=== PATIENT | female | born 1960 | race Caucasian/White ===

== ENCOUNTER → 2017-01-08 | Outpatient (CLI) | payer OTHER ==
[~2017-01-08] MED LIST: ACCUNEB 0.1.25 MG/1 INH; ALBUTEROL0.09 MG/A2 IH; AMBIEN10 M1 PO; AMBIEN10 MG PO; AMITRIPTYLINE10 MG PO; AMOXIL500 M1 PO; ANEXSIA PO; ASPIRIN EC81 MG PO; ASPIRIN325 M2 PO; ATARAX25 MG PO; ATIVAN0.5 MG PO; ATIVAN1 MG PO; AUGMENTIN 875875 MG PO; BACTRIM DS 8001 TA1 PO; BROMOPHED DX 4480 ML PO; Bactroban Oint22 GM T; CALCIUM 500 + D1 TA1 PO; CALCIUM 500 +1 EAC1 PO; CARVEDILOL3.125 MG PO; CARVEDILOL6.25 MG PO; CEFTIN500 MG PO; CIPRO250 MG PO; CIPRO500 MG PO; COREG6.25 MG PO; COZAAR100 MG PO; DELTASONE10 MG PO; DIOCTO LIQ50 MG/5 ML PO; DITROPAN5 MG PO; DUONEB 3 MG/3 ML3 M1 INH; Ecotrin325 MG PO; FLEXERIL10 MG PO; FLOVENT 110 M110 MCG INH; FLOVENT HFA12 GM INH; FLOVENT0.11 MG/AC IH; FLUCONAZOLE100 MG PO; GABAPENTIN100 M1 PO; GABAPENTIN100 M2 PO; GLYCOLAX17 GM/DOSE PO; HUMULIN 70100 UNIT/1 SQ; HUMULIN N100 U/ML SC; HUMULIN N100 UNIT/1 SQ; HYDROCODONE BIT1 T11 PO; IBUPROFEN800 MG PO; KEFLEX500 MG PO; KROGER NIC21 MG/24 H T; LANTUS100 U/ML SC; LASIX40 MG PO; LATU20TA PO; LEVAQUIN750 M1 PO; LEVAQUIN750 MG PO; LIDODERM5% TP; LIPITOR40 MG PO; LISINOPRIL20 MG PO; LORAZEPAM0.5 MG PO; LOSARTAN POTAS100 M1 PO; MIRALAX POWDER17 G1 PO; MIRALAX17 GM PO; MOTRIN800 MG PO; Motrin,Rufen800 MG PO; NEURONTIN100 MG PO; NEURONTIN300 MG PO; NICODERM C21 MG/24 H T; NICODERM C21 MG/24 H TD; NIFEDIAC CC90 MG PO; NIFEDICAL XL60 MG PO; NIFEDIPINE ER90 M1 PO; NITRO TRANS0.4 MG/HR TD; NITROGLYCERIN0.4 MG SL; NITROQUICK0.4 MG PO; NORCO 325 MG-51 TAB PO; NORCO 325 MG-7.1 TAB PO; NORCO 5-325 TA1 EACH PO; OMEPRAZOLE40 MG PO; OSCAL/D,OYSTER250 MG PO; OXYBUTYNIN CHLOR5 M1 PO; OXYBUTYNIN5 MG PO; OXYGEN NAS; OYSTER CAL 500500 MG PO; Oscal,Oyster S500 MG PO; PERCOCET 325 MG1 TA2 PO; PERCOCET 325 MG1 TA5 PO; PRAVASTATIN SOD40 MG PO; PREDNICOT20 MG PO; PREDNISONE10 MG; PREDNISONE10 MG PO; PREDNISONE50 MG PO; PREMARIN V0.625 MG/G VG; PREMARIN0.625 M1 PO; PREMARIN0.625 MG PO; PREVACID30 M1 PO; PRILOSEC20 MG PO; PRILOSEC40 MG PO; PROAIR HFA0.09 MG/AC IH; PROAIR HFA8.5 GM INH; PROCARDIA XL90 MG PO; PROCARDIA10 MG PO; RA HI-CAL PLUS1 EACH PO; ROBAXIN750 MG PO; ROBITUSSIN AC 110 ML PO; SPIRIVA18 MCG PO; TIZANIDINE HCL4 MG PO; TRAMADOL HCL50 MG PO; TRAMADOL50 MG PO; TUDORZA PRESS400 MCG INH; TYLENOL WITH CO1 TAB; ULTRAM50 MG PO; VALIUM10 MG PO; VALIUM5 MG PO; VENTOLIN 02.5 MG/3 M NEB; VENTOLIN H0.09 MG/AC INH; VICO75300 PO; VICODIN 5/500 505 MG PO; VICODIN ES 7501 TA1 PO; VITAMIN D5000 UNIT PO; VITAMIN D50000 I2 PO; VITAMIN D50000 I3 PO; VITAMIN D50000 UNIT PO; ZANAFLEX4 M1 PO; ZANAFLEX4 MG PO; ZANTAC 150150 MG PO; ZANTAC 300300 MG PO; ZESTRIL40 MG PO; ZETIA10 MG PO; ZITHROMAX Z PA250 MG PO; ZITHROMAX250 MG PO; ZOFRAN ODT4 MG PO; ZOFRAN4 MG PO; Zofran4 MG PO; [UNRECOGNIZED DRUG - OTHER]
[2017-01-08 09:07] LABS: HEMATOCRIT 44.7 % (37.0-47.0); HEMOGLOBIN 15.2 g/dl (12.0-16.0); MEAN CELL VOLUME 92.4 fl (81.0-99.0); MEAN CORPUSCULAR HGB 31.4 pg (27.0-31.0); MEAN PLATELET VOLUME 10.6 fl (9.6-12.3); PLATELET COUNT AUTOMATED 243 10*3/uL (130-400); RED BLOOD COUNT 4.84 10*6/uL (4.10-5.10); RED CELL DISTRI WIDTH 12.3 % (0-14.5); WHITE BLOOD COUNT 17.9 10*3/uL (4.8-10.8)
[2017-01-08 09:39] LABS: ALBUMIN 3.2 gm/dl (3.1-4.5); ALKALINE PHOSPHATASE 68 U/L (45-117); BILIRUBIN, TOTAL 0.3 mg/dl (0.2-1.0); BUN 22 mg/dl (7-24); CARBON DIOXIDE 26 mmol/L (21-32); CHLORIDE 104 mmol/L (98-107); CHOLESTEROL 255 mg/dL (<200); EST GLOM FILT AFRICAN AMERICAN > 60 ml/min; GLUCOSE 204 mg/dL (65-99); HDL CHOLESTEROL 47 mg/dl (40-60); SGOT/AST 18 IU/L (3-35); SGPT/ALT 61 U/L (12-78); SODIUM 141 mmol/L (136-145); TOTAL PROTEIN 6.6 gm/dL (6.4-8.2); TRIGLYCERIDES 469 mg/dl (<150)
[2017-01-08 09:43] LABS: ATYPICAL LYMPHS 5 % (0-0); EOSINOPHIL # 0.4 10*3/uL (0-0.4); EOSINOPHILS 2 % (1-4); LYMPHOCYTE # 5.5 10*3/uL (1.3-4.4); MONOCYTE # 1.8 10*3/uL (0.1-1.0); NEUTROPHIL # 10.2 10*3/uL (2.3-7.9); NEUTROPHILS 57 % (47-73); PLATELET SUFFICIENCY NORMAL (NORMAL); TOTAL CELLS COUNTED 100 #CELLS
[2017-01-08 11:39] LABS: VITAMIN D, 25-HYDROXY 27.9 ng/mL (30-100)
== END | disposition home or self-care (01) ==
LOC: LAB 08:46
PROVIDERS: Internal Medicine
DX: E11.42 Type 2 diabetes mellitus with diabetic polyneuropathy (principal); E78.2 Mixed hyperlipidemia; E55.9 Vitamin D deficiency, unspecified; R53.83 Other fatigue

== ENCOUNTER → 2017-01-13 | Outpatient (CLI) | payer OTHER ==
[~2017-01-13] MED LIST changes: +COREG3.125 MG PO; +HUMALOG100 U/ML SC; +LEVOTHYROXIN0.025 MG PO; +NIFEDIPINE ER60 M1 PO
--- NOTE | ~2017-01-13 | ST ---
[place], [place] EXERCISE STRESS TEST REPORT NAME: TY SEXTON [facility] #: [id number] UNIT #: [id number] ROOM: DOCTOR: JACKLYN MAYEN MD BIRTHDATE: [birth year] DOS: 01/13/2017 RESULTS: Lexiscan portion of the Lexiscan Cardiolite. Baseline cardiogram, sinus rhythm with nonspecific ST-T changes. 0.4 mg of Lexiscan, duration of 10 seconds. With Lexiscan, no new EKG changes. No chest pain. Blood pressure and heart rate response was normal. FINAL IMPRESSION: No EKG changes with Lexiscan. No chest pain with Lexiscan. No dysrhythmia with Lexiscan. Blood pressure and heart rate response was normal. Nuclear images will be reported separately. JACKLYN MAYEN MD CM:STRESS:EXERCISE STRESS TEST REPORT [id number] JACKLYN MAYEN MD
== END | disposition home or self-care (01) ==
LOC: CARD 02:38
DX: R07.2 Precordial pain (principal); R53.81 Other malaise

== ENCOUNTER → 2017-04-01 | Outpatient (CLI) | payer OTHER ==
[2017-04-01 09:33] LABS: URINE AMPHETAMINES < 1000 (1000ng/ml); URINE BARBITURATES < 200 (200ng/ml); URINE COCAINE < 300 (300ng/ml)
== END | disposition home or self-care (01) ==
LOC: LAB 08:09
PROVIDERS: Physician Assistant Medical
DX: B18.2 Chronic viral hepatitis C (principal)

== ENCOUNTER → 2017-08-05 | Outpatient (CLI) | payer OTHER ==
[2017-08-05 10:56] LABS: CREATININE 1.09 mg/dL (0.55-1.02)
[2017-08-05 11:07] LABS: URINE AMPHETAMINES < 1000 (1000ng/ml); URINE BARBITURATES < 200 (200ng/ml); URINE BENZODIAZEPINES < 200 (200ng/ml); URINE CANNABINOIDS (THC) < 50 (50ng/ml); URINE COCAINE < 300 (300ng/ml); URINE METHADONE < 300 (300ng/ml); URINE OPIATES > 300 (300ng/ml)
[2017-08-05 11:14] LABS: URINE PHENCYCLIDINE < 25 (25ng/ml)
== END | disposition home or self-care (01) ==
LOC: LAB 10:20 → CT 11:00
PROVIDERS: Internal Medicine; Internal Medicine Gastroenterology
DX: B18.2 Chronic viral hepatitis C (principal); I71.4 Abdominal aortic aneurysm, without rupture; E11.9 Type 2 diabetes mellitus without complications; R10.33 Periumbilical pain; I70.0 Atherosclerosis of aorta

== ENCOUNTER 2017-08-29 14:02 | Emergency (ER) | payer OTHER ==
[~2017-08-29] VITALS: Ht 162.5 cm; Wt 92.5 kg
[2017-08-29 15:03] LABS: BUN 22 mg/dl (7-24); CREATININE 1.21 mg/dL (0.55-1.02)
[2017-08-29 15:05] LABS: ETHYL ALCOHOL < 3.0 mg/dl (<3)
[2017-08-29 15:05] LABS: URINE AMPHETAMINES < 1000 (1000ng/ml); URINE BARBITURATES < 200 (200ng/ml); URINE BENZODIAZEPINES < 200 (200ng/ml); URINE CANNABINOIDS (THC) < 50 (50ng/ml); URINE COCAINE < 300 (300ng/ml); URINE METHADONE < 300 (300ng/ml); URINE OPIATES < 300 (300ng/ml); URINE PHENCYCLIDINE < 25 (25ng/ml)
[2017-08-29 15:07] LABS: BILIRUBIN NEGATIVE (NEGATIVE); BLOOD NEGATIVE (NEGATIVE); CLARITY CLEAR (CLEAR); COLOR YELLOW (YELLOW); GLUCOSE 3+ (NEGATIVE); KETONE TRACE (NEGATIVE); LEUKO ESTERASE NEGATIVE (NEGATIVE); NITRITE NEGATIVE (NEGATIVE); PH 5.5 (5.0-9.0); UROBILINOGEN 0.2 E.U./dl (0.2-1.0)
[2017-08-29 15:17] LABS: RBC 0-2 rbc/hpf (0-2)
[2017-08-29 15:18] LABS: BACTERIA 2+
[2017-08-29] MEDS ORDERED: TYLENOL W/CODEI1 TA4 PO (15:36)
== END 2017-08-29 15:39 | disposition home or self-care (01) ==
LOC: ED 14:02
PROVIDERS: Physician Assistant
DX: M54.5 Low back pain (principal); G89.29 Other chronic pain; F41.9 Anxiety disorder, unspecified; Z90.710 Acquired absence of both cervix and uterus; Z88.8 Allergy status to other drugs, medicaments and biological substances

== ENCOUNTER → 2017-11-03 | Outpatient (CLI) | payer OTHER ==
[~2017-11-03] MED LIST changes: +TYLENOL W/CODEI1 TA4 PO
== END | disposition home or self-care (01) ==
LOC: MAMMO 14:46
DX: Z12.31 Encounter for screening mammogram for malignant neoplasm of breast (principal)

== ENCOUNTER → 2017-11-11 | Outpatient (CLI) | payer OTHER ==
[2017-11-11 14:37] LABS: BASO % 0.3 % (0.0-1.0); EOS # 0.1 10*3/uL (0.0-0.4); EOS % 1.3 % (1.0-4.0); HEMATOCRIT 40.2 % (37.0-47.0); LYMPH # 3.1 10*3/uL (1.3-4.4); LYMPH % 27.3 % (27.0-41.0); MEAN CORPUSCULAR HGB 30.6 pg (27.0-31.0); MEAN CORPUSCULAR HGB CONC 34.8 g/dl (33.0-37.0); MEAN PLATELET VOLUME 11.2 fl (9.6-12.3); MONO # 0.8 10*3/uL (0.1-1.0); NEUT # 7.2 10*3/uL (2.3-7.9); NEUT % 63.8 % (47.0-73.0); PLATELET COUNT AUTOMATED 206 10*3/uL (130-400); RED BLOOD COUNT 4.57 10*6/uL (4.10-5.10); RED CELL DISTRI WIDTH 12.2 % (0-14.5); WHITE BLOOD COUNT 11.2 10*3/uL (4.8-10.8)
[2017-11-11 15:11] LABS: ALBUMIN 3.9 gm/dl (3.1-4.5); CREATININE 1.28 mg/dL (0.55-1.02); POTASSIUM 4.7 mmol/L (3.5-5.1); TOTAL PROTEIN 7.8 gm/dL (6.4-8.2)
== END | disposition home or self-care (01) ==
LOC: LAB 12:51 → MAMMO 13:00
PROVIDERS: Internal Medicine
DX: E11.42 Type 2 diabetes mellitus with diabetic polyneuropathy (principal); R92.8 Other abnormal and inconclusive findings on diagnostic imaging of breast; E78.2 Mixed hyperlipidemia; E03.9 Hypothyroidism, unspecified; E55.9 Vitamin D deficiency, unspecified

== ENCOUNTER → 2018-02-12 | Outpatient (CLI) | payer OTHER ==
[2018-02-12 07:58] LABS: BASO % 0.4 % (0.0-1.0); EOS # 0.3 10*3/uL (0.0-0.4); EOS % 2.8 % (1.0-4.0); HEMATOCRIT 42.6 % (37.0-47.0); HEMOGLOBIN 14.4 g/dl (12.0-16.0); LYMPH # 3.8 10*3/uL (1.3-4.4); LYMPH % 38.2 % (27.0-41.0); MEAN CORPUSCULAR HGB 30.8 pg (27.0-31.0); MEAN CORPUSCULAR HGB CONC 33.8 g/dl (33.0-37.0); MEAN PLATELET VOLUME 11.5 fl (9.6-12.3); MONO % 10.2 % (3.0-9.0); NEUT # 4.7 10*3/uL (2.3-7.9); NEUT % 48.1 % (47.0-73.0); PLATELET COUNT AUTOMATED 262 10*3/uL (130-400); RED BLOOD COUNT 4.68 10*6/uL (4.10-5.10); RED CELL DISTRI WIDTH 12.2 % (0-14.5); WHITE BLOOD COUNT 9.9 10*3/uL (4.8-10.8)
[2018-02-12 08:25] LABS: ALBUMIN 3.8 gm/dl (3.1-4.5); ALKALINE PHOSPHATASE 58 U/L (45-117); BUN 15 mg/dl (7-24); CHLORIDE 105 mmol/L (98-107); CHOLESTEROL 229 mg/dL (<200); CREATININE 0.85 mg/dL (0.55-1.02); HDL CHOLESTEROL 28 mg/dl (40-60); LDL CHOLESTEROL 140 mg/dL (9-159); POTASSIUM 3.9 mmol/L (3.5-5.1); SGOT/AST 15 IU/L (3-35); SGPT/ALT 24 U/L (12-78); SODIUM 140 mmol/L (136-145); TOTAL PROTEIN 7.6 gm/dL (6.4-8.2); TRIGLYCERIDES 307 mg/dl (<150); VLDL CHOLESTEROL 61 mg/dL (6-40)
== END | disposition home or self-care (01) ==
LOC: LAB 06:57
PROVIDERS: Internal Medicine
DX: E11.42 Type 2 diabetes mellitus with diabetic polyneuropathy (principal); E78.2 Mixed hyperlipidemia; E55.9 Vitamin D deficiency, unspecified

== ENCOUNTER 2018-03-01 08:09 | Inpatient (IN) | payer OTHER ==
[~2018-03-01] VITALS: Ht 162.5 cm; Wt 101.9 kg
--- NOTE | ~2018-03-01 | PR ---
[place], [place] PROGRESS NOTE NAME: TY SEXTON UNIT #: [id number] ROOM: 505 DOCTOR: YANN GIRARD MD BIRTHDATE: [birth year] DOS: 03/04/2018 SUBJECTIVE: She has bronchoscopy done yesterday reduction in symptoms of cough, resolution noted incomplete. There were no symptoms of chest pain or any hemoptysis. Denies symptoms of abdominal pain, nausea, vomiting, diarrhea or any abdominal pain. She denies symptoms of chest pain. Still complaining of nocturnal awakening, what appears like gasping and awakening at nighttime. OBJECTIVE: VITAL SIGNS: For the patient which has been recorded showed normal temperature, respiratory rate 18, heart rate 83, blood pressure 130/60. The pulse oxygen saturation on room air was noted 97% saturation. HEAD, EYES, EARS, NOSE, AND THROAT: Head was atraumatic. Eyes nonicterus. NECK: Supple. CARDIOVASCULAR SYSTEM: S1, S2 is audible. LUNGS: Moderate decreased breath, occasional wheezing, no crackles. ABDOMEN: Soft and obese. EXTREMITIES: Without any acute edema. LABORATORY DATA: CBC: WBC count 21.6. The culture of the bronchial washing noted normal manfred. The Gram stain showed many white blood cells, rare epithelial cells, and rare gram-positive cocci in pairs. CMP: BUN 31, creatinine 1.05. IMPRESSION: 1. Status post bronchoscopy management of severe cough, now resolving and removal of mucus plugs. 2. Acute exacerbation of chronic obstructive pulmonary disease as well. 3. Nocturnal awakening patient with hypoxia, consider obstructive sleep apnea disorder in the differentials. 4. Leukocytosis induced by the corticosteroids. PLAN OF MANAGEMENT: Continuation of the bronchodilators and oxygen supplementation. Decrease the Solu-Medrol dose to 40 mg b.i.d. No other change in treatment will be done. Reviewed the nocturnal pulse oxygen to make any additional changes in the medical management accordingly. [place], [place] PROGRESS NOTE NAME: TY SEXTON UNIT #: [id number] ROOM: 505 DOCTOR: YANN GIRARD MD BIRTHDATE: [birth year] YANN GARCIA MD CM:PNTRANS [id number] YANN ALONZO MD 03/04/18 1536 interface
--- NOTE | ~2018-03-01 | CON ---
[place], [place] REPORT OF CONSULTATION NAME: TY SEXTON [facility] #: [id number] UNIT #: [id number] ROOM: [facility] DOCTOR: YANN GIRARD MD BIRTHDATE: [birth year] DOS: 03/02/2018 PULMONARY CONSULTATION REASON FOR CONSULTATION: The patient was asked for consultation to assess the patient's COPD and severe cough. The consultation was ordered by the hospitalist services, completed on 03/02/2018. HISTORY OF PRESENT ILLNESS: This is a 58-year-old white female patient who has been admitted under the hospitalist service on 03/01/2018. The patient presented to the hospital. The patient developed symptoms of progressive increased shortness of breath, coughing, and wheezing for the past few days. Symptoms have been noted gradually worsened. She has been treated by the primary care physician with oral antibiotic. The patient has some cough medication. The patient stated she has not been noted with improvement in symptoms and came into the Emergency Room for further assessment. The symptoms of shortness of breath have been noted progressively worsened. The cough has been described to be moderate to severe and nonproductive. She does have symptoms of soreness in the chest because of the cough. The wheezing was also noted significantly increased. She was noted shortness of breath with mild exertion and activities. REVIEW OF SYSTEMS: CONSTITUTIONAL SYMPTOMS: Fatigue and tiredness noted. Denies symptoms of fever or chills. EYES: Denies burning, redness, or tenderness. EARS, NOSE, THROAT SYMPTOMS: Denies sore throat, hoarseness, otalgia, postnasal drainage, or epistaxis. CARDIOVASCULAR: No anginal pain, edema, or pain in lower extremity. GASTROINTESTINAL: Denies dysphagia, nausea, vomiting, diarrhea, abdominal pain, hematemesis, melena, or hematochezia. Denies any symptoms of abnormal weight loss. GENITOURINARY SYMPTOMS: Denies dysuria, suprapubic pain, or hematuria. MUSCULOSKELETAL: No acute joint pain, redness, or tenderness. SKIN: Denies abnormal lesions or rashes. MUSCULOSKELETAL: Without acute deformities. CENTRAL NERVOUS SYSTEM: No dizziness, headache, diplopia, or syncopal episodes. Remaining systems were reviewed, they were noted all negative. PAST MEDICAL HISTORY: Known with history of: 1. Longstanding COPD and bronchial asthma, which was moderate, persistent, uncomplicated. 2. Chronic nicotine dependence. 3. Type 2 diabetes mellitus. 4. Essential hypertension. 5. Xmqr-eg-dblnimur obesity. 6. Peripheral neuropathy. 7. Abdominal aortic aneurysm. 8. Pulmonary nodule, the patient noted to be benign with past assessment. 9. Intervertebral disc disease. [place], [place] REPORT OF CONSULTATION NAME: TY SEXTON UNIT #: [id number] ROOM: [facility] DOCTOR: RADHA ALONZO MD,[facility] BIRTHDATE: [birth year] 10. Urinary incontinence with previous urogenital interventions. 11. Abnormal REGGIE, significance unknown. SOCIAL HISTORY: The patient lives at home. It was noticed she has history of tobacco use as teenager, intermittent tobacco cessation noted, currently smoking few cigarettes 2 days a week. Denies any history of alcohol use or illicit drugs. PAST SURGICAL HISTORY: Surgical history noted: 1. Therapeutic bronchoscopy last done in 2017. 2. Urologic surgery for the bladder. 3. Sebaceous cyst removal from the left axilla. FAMILY HISTORY: Noted noncontributory. CURRENT MEDICATIONS: Administered noted use of Tradjenta, nicotine replacement patches, vitamin D, nifedipine, levothyroxine, Protonix, sliding insulin coverage, Flexeril, gabapentin, Solu-Medrol 60 mg q. 8 hours, oral Lasix, Lovenox for DVT prophylaxis, DuoNeb q. 4 hours, Robitussin with codeine, Levaquin, other p.r.n. medications administration. DRUG ALLERGIES: NOTED SEROQUEL CAUSING ANAPHYLAXIS. PHYSICAL EXAMINATION: GENERAL: This is a 58-year-old white female, noted awake and alert, quite anxious. Height of 5 feet 4 inches, weight of 224 pounds with BMI 38.5. VITAL SIGNS: Normal temperature 99.2 degrees Fahrenheit, respiratory rate 18-20, heart rate 119-98, mild sinus tachycardia, blood pressure 136/66-116/78. Pulse ox saturation on room air was 96% saturation. HEENT: Hsae-mu-fxtddval obesity. Head was atraumatic. Eyes, nonicterus. NECK: Supple. CARDIOVASCULAR SYSTEM: S1, S2 audible. LUNGS: Diffuse reduction in breath sounds bilaterally with expiratory wheezing. No crackles. ABDOMEN: Soft and obese. EXTREMITIES: Without any acute edema. MUSCULOSKELETAL: The patient without any acute deformities. CENTRAL NERVOUS SYSTEM: Cranial nerves 2-12 intact. MUSCULOSKELETAL: There were no focal neurologic deficits. VISIBLE SKIN: No lesions or rashes. LABORATORY DATA: CBC that was done yesterday in the Emergency Room, WBC count 12.2, otherwise normal CBC. Lactic acid 2.4 yesterday. Follow-up lactic acid 2.0 yesterday as well. PT and PTT noted normal yesterday. CMP yesterday, glucose 125, BUN and creatinine normal. CBC this morning, WBC count 16.2, hemoglobin and hematocrit normal, platelet count normal. CMP this morning, glucose 190, BUN 17, creatinine 1.17, CO2 of 20. LFTs normal. IMAGING DATA: Chest x-ray 1 view that was done in the Emergency Room reviewed with the patient, noted without any acute pulmonary abnormalities. [place], [place] REPORT OF CONSULTATION NAME: TY SEXTON UNIT #: [id number] ROOM: [facility] DOCTOR: YANN GIRARD MD BIRTHDATE: [birth year] IMPRESSION: The patient has been admitted to the hospital with: 1. History of chronic nicotine abuse. The patient was currently noted with progressive acute exacerbation of chronic obstructive pulmonary disease as well as uncomplicated moderate persistent bronchial asthma combination. 2. Chronic nicotine dependency. 3. The patient with moderate obesity. 4. Low-grade fever as well noted, secondary to current acute bronchitis. 5. Leukocytosis, most likely resulting from corticosteroids. 6. Hyperglycemia. The patient with a history of type 2 diabetes mellitus, worsened with the patient's use of corticosteroids. PLAN OF TREATMENT: Severe nonproductive cough with musculoskeletal pain of the chest because of ineffective sputum expectoration. The patient will benefit from fiberoptic bronchoscopy, planned to be done in the morning. Continue current dose of corticosteroids, bronchodilators, and other interventions as in progress. Additional change in treatment will be done based on the progression of the illness. Other usual care, supportive therapy, plan of management and treatments. Thank you for allowing me to participate in care of this patient. YANN GARCIA MD CM:CONSTR:REPORT OF CONSULTATION 1436 03/02/18 2321 interface
--- NOTE | ~2018-03-01 | PROC NOTE ---
[place], [place] PROCEDURE NOTE [id number] UNIT #: [id number] ROOM: [facility] DOCTOR: RADHA ALONZO MD,YANN BIRTHDATE: [birth year] DOS: 03/03/2018 PROCEDURE: PREOPERATIVE DIAGNOSIS: Severe nonproductive cough for this patient with chest pain and shortness of breath as well as wheezing. POSTOPERATIVE DIAGNOSES: Removal of multiple plugs and mucus removed from all of the endobronchial tree bilaterally. FINDING: Acute tracheobronchitis. PROCEDURE DESCRIPTION: Informed consent was obtained from the patient. The bronchoscope advanced to the vocal cord and tracheal lumen. Tracheal lumen was identified, which shows moderate amount of thick mucus secretion, which was suctioned out to the kay level. Secretion suctioned out to the kay. Right upper, right middle, right lower, left upper, lingular lobe bronchus noted thick plugs of mucus. The patient with infected area which is suctioned out to the kay level. Procedure well tolerated by the patient without any complications. Postoperative findings will be discussed with the patient once the patient recovered the effects of acute sedation. No change in treatment immediately will be needed after bronchoscopy. YANN GARCIA MD CM:PROCNOTE:PROCEDURE NOTE [id number] YANN ALONZO MD
--- NOTE | ~2018-03-01 | PR ---
[place], [place] PROGRESS NOTE NAME: TY SEXTON [facility] #: [id number] UNIT #: [id number] ROOM: [facility] DOCTOR: RADHA ALONZO MD,YANN BIRTHDATE: [birth year] DOS: 03/03/2018 SUBJECTIVE: The patient was noted severe excessive coughing, quite anxious as well, stating she was having difficulty breathing at night. Denies symptoms of chest pain. The coughing remains nonproductive. Wheezing was also noted. She was also complaining of some chest tightness and pain in the lower portion of the chest secondary to cough. Denies symptoms of dizziness, headache, and diplopia. Denies symptoms of nausea, vomiting and generalized weakness and fatigue, was reported. Remaining systems were reviewed. They were noted all negative. The patient was currently noted n.p.o. past midnight. Bronchoscopy planned for today. OBJECTIVE: VITAL SIGNS: For the patient which has been recorded showed normal temperature, respiratory rate of 18-22, heart rate of 114-123, blood pressure 115/76, 118/70. Pulse oxygen saturation noted on room air 96% saturation. HEAD, EYES, EARS, NOSE, AND THROAT: Examination shows head was atraumatic. Eyes nonicterus. NECK: Supple. CARDIOVASCULAR: S1, S2 is audible. LUNGS: Which was noted without any crackles. Diffuse expiratory wheezing noted, decreased breath sounds bilaterally. ABDOMEN: Soft, obese, nontender. EXTREMITIES: Without any edema with no lesions or rashes. MUSCULOSKELETAL: No deformities. GENITOURINARY: Intact. LABORATORY DATA: CBC: WBC count of 28.4. Hemoglobin and hematocrit normal, platelet count normal, 90% segmented neutrophil differentials. CMP today, BUN 31, creatinine 1.22, glucose 197. Remaining electrolytes normal. Blood culture from the 7th of this month showed no bacterial growths. IMPRESSION: 1. Ongoing severe acute exacerbation of chronic obstructive pulmonary disease, acute tracheobronchitis. 2. Nocturnal shortness of breath, possible sleep apnea disorder or nocturnal hypoxia would be considered. 3. Leukocytosis remains persistent and also noted worsened secondary to corticosteroids. PLAN OF MANAGEMENT: Proceed with fibrobronchoscopy. Nocturnal oxygen assessment on room air will be done tonight. Continuation bronchodilator, no change in steroid dose will be needed. Continue bronchodilator 4 hours. Usual care. Also, continue nicotine replacement patches as well. An additional treatment changes will be made for the patient done after bronchoscopy if necessary. [place], [place] PROGRESS NOTE [id number] UNIT #: [id number] ROOM: [facility] DOCTOR: YANN GIRARD MD BIRTHDATE: [birth year] YANN GARCIA MD CM:PNTRANS 1102 1526 YANN ALONZO MD 03/03/18 1525 interface
--- NOTE | ~2018-03-01 | PR ---
[place], [place] PROGRESS NOTE NAME: TY SEXTON [facility] #: [id number] UNIT #: [id number] ROOM: 505 DOCTOR: RADHA ALONZO MD,YANN BIRTHDATE: [birth year] DOS: 03/05/2018 SUBJECTIVE: She has been noted comfortable at this time with the reduction of the respiratory symptoms noted in the last 24 hours. Coughing has been improving. There were symptoms of chest pain. There was no symptom of abdominal pain. OBJECTIVE: VITAL SIGNS: Normal temperature, respiratory rate 18, heart rate 70, blood pressure 130/77. Pulse oxygen saturation on room air 97% saturation. HEENT: Chronic obesity. Head was atraumatic. Eyes nonicterus. NECK: Supple. CARDIOVASCULAR: S1, S2 is audible. LUNGS: Without any wheeze or crackles. ABDOMEN: Soft, nontender. EXTREMITIES: Without any acute edema. LABORATORY DATA: CBC today: WBC count 18.1. Remaining CBC was normal. IMPRESSION: 1. The patient with progressive resolution of the acute respiratory symptom. The bronchial washing culture was noted as normal. 2. Resolving acute exacerbation of chronic obstructive pulmonary disease. 3. Chronic nicotine abuse. 4. Nocturnal awakening with possible consideration for sleep apnea disorder to be further assessed as an outpatient. YANN GARCIA MD CM:PNTRANS 1153 [id number] YANN ALONZO MD 03/06/18 0018 interface
[2018-03-01 08:14] VITALS: BP 164/92
[2018-03-01 08:39] LABS: BASO % 0.2 % (0.0-1.0); EOS # 0.3 10*3/uL (0.0-0.4); EOS % 2.7 % (1.0-4.0); HEMATOCRIT 43.4 % (37.0-47.0); HEMOGLOBIN 14.5 g/dl (12.0-16.0); LYMPH # 3.7 10*3/uL (1.3-4.4); LYMPH % 30.3 % (27.0-41.0); MEAN CELL VOLUME 91.8 fl (81.0-99.0); MEAN CORPUSCULAR HGB 30.7 pg (27.0-31.0); MEAN CORPUSCULAR HGB CONC 33.4 g/dl (33.0-37.0); MEAN PLATELET VOLUME 11.3 fl (9.6-12.3); MONO # 0.9 10*3/uL (0.1-1.0); MONO % 7.2 % (3.0-9.0); NEUT # 7.2 10*3/uL (2.3-7.9); NEUT % 59.3 % (47.0-73.0); PLATELET COUNT AUTOMATED 212 10*3/uL (130-400); RED BLOOD COUNT 4.73 10*6/uL (4.10-5.10); RED CELL DISTRI WIDTH 12.3 % (0-14.5); WHITE BLOOD COUNT 12.2 10*3/uL (4.8-10.8)
[2018-03-01 08:48] LABS: ACT PARTIAL THROMBO TIME 24.5 SECONDS (20.8-31.5); INTERNATIONAL NORM RATIO 0.9 (2.0-3.5)
[2018-03-01 08:56] LABS: ALBUMIN 3.9 gm/dl (3.1-4.5); ALKALINE PHOSPHATASE 62 U/L (45-117); BUN 16 mg/dl (7-24); CHLORIDE 103 mmol/L (98-107); CREATININE 0.98 mg/dL (0.55-1.02); POTASSIUM 4.2 mmol/L (3.5-5.1); SGOT/AST 29 IU/L (3-35); SGPT/ALT 32 U/L (12-78); SODIUM 137 mmol/L (136-145); TOTAL PROTEIN 7.9 gm/dL (6.4-8.2)
[2018-03-01 08:59] LABS: TROPONIN I < 0.015 ng/ml (<0.045)
[2018-03-01 09:03] VITALS: BP 136/90
[2018-03-01 10:20] VITALS: BP 125/96
[2018-03-01] MEDS ORDERED: VITAMIN D-32000 UNI1 PO (10:25)
[2018-03-01] MEDS ORDERED: NORCO 7.5-3251 EACH PO (10:28)
[2018-03-01] MEDS ORDERED: METFORMIN500 MG PO (10:31)
[2018-03-01] MEDS ORDERED: NICODERM CQ1 EAC2 TD (10:36)
[2018-03-01] MEDS ORDERED: GUAIFEN-CODEINE5 ML PO (11:13)
[2018-03-01] MEDS ORDERED: TRAD5TAB1 PO (11:22)
[2018-03-01 12:00] VITALS: BP 123/75
[2018-03-01 16:00] VITALS: BP 116/78
[2018-03-01 20:00] VITALS: BP 118/68
[2018-03-02] VITALS: BP 130/67
[2018-03-02 06:30] LABS: BASO % 0.1 % (0.0-1.0); HEMOGLOBIN 13.2 g/dl (12.0-16.0); LYMPH # 1.4 10*3/uL (1.3-4.4); LYMPH % 8.6 % (27.0-41.0); MEAN CORPUSCULAR HGB 30.3 pg (27.0-31.0); MEAN PLATELET VOLUME 11.7 fl (9.6-12.3); MONO # 0.4 10*3/uL (0.1-1.0); MONO % 2.5 % (3.0-9.0); NEUT # 14.3 10*3/uL (2.3-7.9); NEUT % 87.9 % (47.0-73.0); PLATELET COUNT AUTOMATED 201 10*3/uL (130-400); RED BLOOD COUNT 4.35 10*6/uL (4.10-5.10); RED CELL DISTRI WIDTH 12.1 % (0-14.5); WHITE BLOOD COUNT 16.2 10*3/uL (4.8-10.8)
[2018-03-02 07:09] LABS: ALBUMIN 3.4 gm/dl (3.1-4.5); CREATININE 1.15 mg/dL (0.55-1.02); PHOSPHOROUS 2.5 mg/dL (2.5-4.9); POTASSIUM 4.4 mmol/L (3.5-5.1)
[2018-03-02 07:15] LABS: FREE T4 0.89 ng/dl (0.76-1.46); TOTAL PROTEIN 7.5 gm/dL (6.4-8.2)
[2018-03-02 07:18] LABS: THYROID STIM HORMONE (HS) 0.49 uIU/ml (0.358-4.75)
[2018-03-02 07:59] LABS: VITAMIN D, 25-HYDROXY 25.4 ng/mL (30-100)
[2018-03-02 08:00] VITALS: BP 130/66
[2018-03-02 12:00] VITALS: BP 116/45
[2018-03-02 16:47] VITALS: BP 102/68
[2018-03-02 20:00] VITALS: BP 131/87
[2018-03-03] VITALS (9 sets, daily range): BP systolic 96–140; BP diastolic 52–107
[2018-03-03 07:21] LABS: HEMATOCRIT 42.1 % (37.0-47.0); HEMOGLOBIN 13.8 g/dl (12.0-16.0); MEAN CELL VOLUME 92.9 fl (81.0-99.0); MEAN CORPUSCULAR HGB 30.5 pg (27.0-31.0); MEAN CORPUSCULAR HGB CONC 32.8 g/dl (33.0-37.0); MEAN PLATELET VOLUME 11.6 fl (9.6-12.3); PLATELET COUNT AUTOMATED 243 10*3/uL (130-400); RED BLOOD COUNT 4.53 10*6/uL (4.10-5.10); RED CELL DISTRI WIDTH 12.3 % (0-14.5); WHITE BLOOD COUNT 28.4 10*3/uL (4.8-10.8)
[2018-03-03 07:37] LABS: ALBUMIN 3.8 gm/dl (3.1-4.5); CREATININE 1.22 mg/dL (0.55-1.02); POTASSIUM 4.1 mmol/L (3.5-5.1); TOTAL PROTEIN 7.6 gm/dL (6.4-8.2)
[2018-03-03 08:06] LABS: PLATELET SUFFICIENCY NORMAL (NORMAL); TOTAL CELLS COUNTED 100 #CELLS
[2018-03-04] VITALS: BP 113/68
[2018-03-04 07:45] LABS: HEMATOCRIT 37.3 % (37.0-47.0); HEMOGLOBIN 12.4 g/dl (12.0-16.0); MEAN CELL VOLUME 91.6 fl (81.0-99.0); MEAN CORPUSCULAR HGB 30.5 pg (27.0-31.0); MEAN CORPUSCULAR HGB CONC 33.2 g/dl (33.0-37.0); MEAN PLATELET VOLUME 11.6 fl (9.6-12.3); PLATELET COUNT AUTOMATED 226 10*3/uL (130-400); RED BLOOD COUNT 4.07 10*6/uL (4.10-5.10); RED CELL DISTRI WIDTH 12.3 % (0-14.5); WHITE BLOOD COUNT 21.6 10*3/uL (4.8-10.8)
[2018-03-04 08:00] VITALS: BP 138/60
[2018-03-04 08:02] LABS: ALBUMIN 3.5 gm/dl (3.1-4.5); ALKALINE PHOSPHATASE 52 U/L (45-117); BUN 31 mg/dl (7-24); CHLORIDE 104 mmol/L (98-107); CREATININE 1.05 mg/dL (0.55-1.02); POTASSIUM 3.7 mmol/L (3.5-5.1); SGOT/AST 17 IU/L (3-35); SGPT/ALT 35 U/L (12-78); SODIUM 137 mmol/L (136-145); TOTAL PROTEIN 7.4 gm/dL (6.4-8.2)
[2018-03-04 08:11] LABS: TOTAL CELLS COUNTED 100 #CELLS
[2018-03-04 08:12] LABS: PLATELET SUFFICIENCY NORMAL (NORMAL)
[2018-03-04 12:00] VITALS: BP 139/79
[2018-03-04 15:08] LABS: ACID FAST SPEC PROCESSING Concentration (.)
[2018-03-04 16:00] VITALS: BP 109/63
[2018-03-04 20:00] VITALS: BP 112/72
[2018-03-05] VITALS: BP 123/78
[2018-03-05 08:00] VITALS: BP 130/77
[2018-03-05] MEDS ORDERED: LEVOFLOXACIN500 MG PO (08:20)
[2018-03-05] MEDS ORDERED: PREDNISONE10 MG PO (08:20)
[2018-03-05 10:15] LABS: HEMATOCRIT 41.4 % (37.0-47.0); HEMOGLOBIN 13.6 g/dl (12.0-16.0); MEAN CELL VOLUME 92.2 fl (81.0-99.0); MEAN CORPUSCULAR HGB 30.3 pg (27.0-31.0); MEAN CORPUSCULAR HGB CONC 32.9 g/dl (33.0-37.0); MEAN PLATELET VOLUME 11.4 fl (9.6-12.3); PLATELET COUNT AUTOMATED 250 10*3/uL (130-400); RED BLOOD COUNT 4.49 10*6/uL (4.10-5.10); RED CELL DISTRI WIDTH 12.3 % (0-14.5); WHITE BLOOD COUNT 18.1 10*3/uL (4.8-10.8)
[2018-03-05 10:33] LABS: CREATININE 1.14 mg/dL (0.55-1.02); POTASSIUM 4.3 mmol/L (3.5-5.1)
[2018-03-05 10:41] LABS: PLATELET SUFFICIENCY NORMAL (NORMAL); TOTAL CELLS COUNTED 100 #CELLS
== END 2018-03-05 11:31 | disposition home or self-care (01) | DRG 871 ==
LOC: ED 08:09 → 5E 09:03 → EDHOLD 09:03 → 5E 09:29
PROVIDERS: Emergency Medicine; Internal Medicine; Internal Medicine Critical Care Medicine; Registered Nurse
PROC: 0BC98ZZ Extirpation of Matter from Lingula Bronchus, Via Natural or Artificial Opening Endoscopic (ICD-10-PCS; principal; 2018-03-03)
PROC: 0BC48ZZ Extirpation of Matter from Right Upper Lobe Bronchus, Via Natural or Artificial Opening Endoscopic (ICD-10-PCS; 2018-03-03)
PROC: 0BC88ZZ Extirpation of Matter from Left Upper Lobe Bronchus, Via Natural or Artificial Opening Endoscopic (ICD-10-PCS; 2018-03-03)
PROC: 0BC58ZZ Extirpation of Matter from Right Middle Lobe Bronchus, Via Natural or Artificial Opening Endoscopic (ICD-10-PCS; 2018-03-03)
PROC: 0BC38ZZ Extirpation of Matter from Right Main Bronchus, Via Natural or Artificial Opening Endoscopic (ICD-10-PCS; 2018-03-03)
PROC: 0BC78ZZ Extirpation of Matter from Left Main Bronchus, Via Natural or Artificial Opening Endoscopic (ICD-10-PCS; 2018-03-03)
PROC: 0BC68ZZ Extirpation of Matter from Right Lower Lobe Bronchus, Via Natural or Artificial Opening Endoscopic (ICD-10-PCS; 2018-03-03)
PROC: 0BCB8ZZ Extirpation of Matter from Left Lower Lobe Bronchus, Via Natural or Artificial Opening Endoscopic (ICD-10-PCS; 2018-03-03)
PROC: 0BC28ZZ Extirpation of Matter from Carina, Via Natural or Artificial Opening Endoscopic (ICD-10-PCS; 2018-03-03)
PROC: 0BC18ZZ Extirpation of Matter from Trachea, Via Natural or Artificial Opening Endoscopic (ICD-10-PCS; 2018-03-03)
DX: A41.9 Sepsis, unspecified organism (principal); N17.0 Acute kidney failure with tubular necrosis; E87.2 Acidosis; J44.1 Chronic obstructive pulmonary disease with (acute) exacerbation; F41.9 Anxiety disorder, unspecified; F32.9 Major depressive disorder, single episode, unspecified; M54.9 Dorsalgia, unspecified; R65.20 Severe sepsis without septic shock; J20.9 Acute bronchitis, unspecified; M79.7 Fibromyalgia; M19.90 Unspecified osteoarthritis, unspecified site; E78.2 Mixed hyperlipidemia; E11.69 Type 2 diabetes mellitus with other specified complication; G89.29 Other chronic pain; B19.20 Unspecified viral hepatitis C without hepatic coma; E11.42 Type 2 diabetes mellitus with diabetic polyneuropathy; E66.09 Other obesity due to excess calories; F17.210 Nicotine dependence, cigarettes, uncomplicated; E83.41 Hypermagnesemia; E11.65 Type 2 diabetes mellitus with hyperglycemia; T38.0X5A Adverse effect of glucocorticoids and synthetic analogues, initial encounter; Y92.89 Other specified places as the place of occurrence of the external cause; Z87.81 Personal history of (healed) traumatic fracture; Z68.38 Body mass index [BMI] 38.0-38.9, adult; Z90.710 Acquired absence of both cervix and uterus; Z99.81 Dependence on supplemental oxygen; Z79.51 Long term (current) use of inhaled steroids; Z79.4 Long term (current) use of insulin; Z79.899 Other long term (current) drug therapy; Z88.8 Allergy status to other drugs, medicaments and biological substances; Z82.49 Family history of ischemic heart disease and other diseases of the circulatory system; Z83.3 Family history of diabetes mellitus; Z82.3 Family history of stroke; Z80.8 Family history of malignant neoplasm of other organs or systems; Z71.6 Tobacco abuse counseling

== ENCOUNTER 2018-03-14 21:44 | Emergency (ER) | payer OTHER ==
[~2018-03-14] VITALS: Ht 162.5 cm; Wt 99.8 kg
--- NOTE | ~2018-03-14 | EKG ---
[place], [place] ELECTROCARDIOGRAM REPORT NAME: TY SEXTON UNIT #: [id number] ROOM: DOCTOR: RADHA ALONZO MD,YANN BIRTHDATE: [birth year] DOS: 03/14/2018 ELECTROCARDIOGRAM TIME: 10:49 p.m. FINDINGS: Sinus tachycardia noted, heart rate 105 beats per minute, otherwise normal electrocardiogram. YANN GARCIA MD CM:EKGRPT:ELECTROCARDIOGRAM REPORT [id number] 1955 YANN ALONZO MD
[~2018-03-14 21:44] MED LIST changes: +GUAIFEN-CODEINE5 ML PO; +LEVOFLOXACIN500 MG PO; +METFORMIN500 MG PO; +NICODERM CQ1 EAC2 TD; +NORCO 7.5-3251 EACH PO; +TRAD5TAB1 PO; +VITAMIN D-32000 UNI1 PO
[2018-03-14 23:01] LABS: BILIRUBIN NEGATIVE (NEGATIVE); BLOOD NEGATIVE (NEGATIVE); CLARITY SL CLOUDY (CLEAR); COLOR YELLOW (YELLOW); GLUCOSE NEGATIVE (NEGATIVE); KETONE NEGATIVE (NEGATIVE); LEUKO ESTERASE NEGATIVE (NEGATIVE); NITRITE NEGATIVE (NEGATIVE); SPECIFIC GRAVITY >= 1.030 (1.005-1.030); UROBILINOGEN 0.2 E.U./dl (0.2-1.0)
[2018-03-14 23:09] LABS: HEMATOCRIT 41.3 % (37.0-47.0); HEMOGLOBIN 13.9 g/dl (12.0-16.0); MEAN CELL VOLUME 91.4 fl (81.0-99.0); MEAN CORPUSCULAR HGB 30.8 pg (27.0-31.0); MEAN CORPUSCULAR HGB CONC 33.7 g/dl (33.0-37.0); MEAN PLATELET VOLUME 10.9 fl (9.6-12.3); PLATELET COUNT AUTOMATED 228 10*3/uL (130-400); RED BLOOD COUNT 4.52 10*6/uL (4.10-5.10); RED CELL DISTRI WIDTH 12.5 % (0-14.5); WHITE BLOOD COUNT 17.1 10*3/uL (4.8-10.8)
[2018-03-14 23:17] LABS: INTERNATIONAL NORM RATIO 0.9 (2.0-3.5)
[2018-03-14 23:17] LABS: BACTERIA 1+; EPITHELIAL CELLS 30-35
[2018-03-14 23:26] LABS: ALBUMIN 3.8 gm/dl (3.1-4.5); ALKALINE PHOSPHATASE 62 U/L (45-117); BUN 23 mg/dl (7-24); CHLORIDE 103 mmol/L (98-107); CREATININE 1.11 mg/dL (0.55-1.02); POTASSIUM 3.9 mmol/L (3.5-5.1); SGOT/AST 17 IU/L (3-35); SGPT/ALT 29 U/L (12-78); SODIUM 137 mmol/L (136-145); TOTAL PROTEIN 7.6 gm/dL (6.4-8.2)
[2018-03-14 23:27] LABS: PLATELET SUFFICIENCY NORMAL (NORMAL); TOTAL CELLS COUNTED 100 #CELLS
[2018-03-14 23:29] LABS: TROPONIN I < 0.015 ng/ml (<0.045)
[2018-03-15] MEDS ORDERED: DUONEB 3 MG/3 ML3 M1 INH (00:18)
[2018-03-15] MEDS ORDERED: TESSALON PERLE100 M1 PO (00:18)
== END 2018-03-15 00:45 | disposition home or self-care (01) ==
LOC: ED 21:44
PROVIDERS: Emergency Medicine Emergency Medical Services
DX: J44.9 Chronic obstructive pulmonary disease, unspecified (principal); J42 Unspecified chronic bronchitis; F41.9 Anxiety disorder, unspecified; F17.200 Nicotine dependence, unspecified, uncomplicated; G89.29 Other chronic pain; E11.65 Type 2 diabetes mellitus with hyperglycemia; E78.5 Hyperlipidemia, unspecified; E66.9 Obesity, unspecified; M19.90 Unspecified osteoarthritis, unspecified site; Z79.899 Other long term (current) drug therapy; Z79.4 Long term (current) use of insulin; Z90.710 Acquired absence of both cervix and uterus; Z88.8 Allergy status to other drugs, medicaments and biological substances

== ENCOUNTER 2018-05-02 22:32 | Emergency (ER) | payer OTHER ==
[~2018-05-02] VITALS: Ht 162.5 cm; Wt 95.3 kg
[~2018-05-02 22:32] MED LIST changes: +TESSALON PERLE100 M1 PO
[2018-05-03] MEDS ORDERED: Motrin,Rufen800 MG PO (01:02)
[2018-05-03] MEDS ORDERED: CYCLOBENZAPRINE5 M3 PO (01:02)
== END 2018-05-03 01:11 | disposition home or self-care (01) ==
LOC: ED 22:32
DX: M54.5 Low back pain (principal); M25.551 Pain in right hip; F17.200 Nicotine dependence, unspecified, uncomplicated; G89.29 Other chronic pain; Z90.710 Acquired absence of both cervix and uterus; Z88.8 Allergy status to other drugs, medicaments and biological substances; Z79.899 Other long term (current) drug therapy; Z79.4 Long term (current) use of insulin

== ENCOUNTER → 2018-09-01 | Outpatient (CLI) | payer OTHER ==
[~2018-09-01] MED LIST changes: +CYCLOBENZAPRINE5 M3 PO; +DOXYCYCLINE100 M3 PO; +LANTUS SOL100 UNIT/1 SQ; +LOPRESSOR25 MG PO; +LOSARTAN POTASS50 M1 PO; +METFORMIN HYDR500 MG PO; -METFORMIN500 MG PO; +NICODERM CQ1 EAC2 T; +PRILOSEC20 M1 PO; +TEMAZEPAM15 M1 PO
== END | disposition home or self-care (01) ==
LOC: RESCLI 13:33
DX: I10 Essential (primary) hypertension (principal); M25.551 Pain in right hip; E11.42 Type 2 diabetes mellitus with diabetic polyneuropathy; E78.2 Mixed hyperlipidemia; J41.1 Mucopurulent chronic bronchitis; K21.9 Gastro-esophageal reflux disease without esophagitis; M54.42 Lumbago with sciatica, left side; M54.41 Lumbago with sciatica, right side; E55.9 Vitamin D deficiency, unspecified; F31.73 Bipolar disorder, in partial remission, most recent episode manic; E03.9 Hypothyroidism, unspecified; I71.4 Abdominal aortic aneurysm, without rupture; R60.0 Localized edema; F17.200 Nicotine dependence, unspecified, uncomplicated; Z76.89 Persons encountering health services in other specified circumstances; Z71.6 Tobacco abuse counseling; Z79.4 Long term (current) use of insulin; Z79.899 Other long term (current) drug therapy

== ENCOUNTER → 2018-10-22 | Outpatient (CLI) | payer OTHER ==
[~2018-10-22] MED LIST changes: +HYDRALAZINE HYD50 MG PO; +LEVEMIR100 UNIT/1 SQ; +METOPROLOL SUC100 M1 PO; +PROCARDIA XL60 MG PO
[2018-10-22 12:01] LABS: URINE AMPHETAMINES < 1000 (1000ng/ml); URINE BARBITURATES < 200 (200ng/ml); URINE BENZODIAZEPINES > 200 (200ng/ml); URINE CANNABINOIDS (THC) > 50 (50ng/ml); URINE COCAINE < 300 (300ng/ml); URINE METHADONE < 300 (300ng/ml); URINE OPIATES > 300 (300ng/ml)
[2018-10-22 12:03] LABS: URINE PHENCYCLIDINE < 25 (25ng/ml)
== END | disposition home or self-care (01) ==
PROVIDERS: Internal Medicine Nephrology
DX: M25.551 Pain in right hip (principal); Z79.899 Other long term (current) drug therapy

== ENCOUNTER 2018-11-18 11:41 | Emergency (ER) | payer OTHER ==
[~2018-11-18] VITALS: Ht 162.5 cm; Wt 99.8 kg
[~2018-11-18 11:41] MED LIST changes: -HYDRALAZINE HYD50 MG PO; -LEVEMIR100 UNIT/1 SQ; -METOPROLOL SUC100 M1 PO; -PROCARDIA XL60 MG PO
== END 2018-11-18 12:42 | disposition home or self-care (01) ==
LOC: ED 11:41
DX: G89.29 Other chronic pain (principal); M25.551 Pain in right hip; M54.5 Low back pain; I10 Essential (primary) hypertension; J44.9 Chronic obstructive pulmonary disease, unspecified; E11.9 Type 2 diabetes mellitus without complications; F17.200 Nicotine dependence, unspecified, uncomplicated; Z88.8 Allergy status to other drugs, medicaments and biological substances; Z79.899 Other long term (current) drug therapy; Z79.2 Long term (current) use of antibiotics; Z79.4 Long term (current) use of insulin; Z79.84 Long term (current) use of oral hypoglycemic drugs; Z90.710 Acquired absence of both cervix and uterus

== ENCOUNTER → 2018-11-18 | Outpatient (CLI) | payer OTHER | END | disposition home or self-care (01) | LOC: MRI 11-15 10:00 | DX: S73.191A Other sprain of right hip, initial encounter (principal); M24.851 Other specific joint derangements of right hip, not elsewhere classified; X58.XXXA Exposure to other specified factors, initial encounter; Y93.89 Activity, other specified; Y92.89 Other specified places as the place of occurrence of the external cause; Y99.8 Other external cause status; M16.11 Unilateral primary osteoarthritis, right hip ==

== ENCOUNTER 2018-12-08 10:48 | Inpatient (IN) | payer OTHER ==
[~2018-12-08] VITALS: Ht 162.5 cm; Wt 98.4 kg
[2018-12-08] VITALS (8 sets, daily range): BP systolic 155–201; BP diastolic 62–132
--- NOTE | ~2018-12-08 | CON ---
[place], [place] REPORT OF CONSULTATION NAME: TY SEXTON [facility] #: [id number] UNIT #: [id number] ROOM: 407 DOCTOR: NAT SOLIS MD BIRTHDATE: [birth year] DOS: 12/09/2018 CARDIOLOGY CONSULTATION REASON FOR CONSULTATION: Chest pain and hypertension. CLINICAL HISTORY: This is a 58-year-old patient with history of hypertension, non-morbid obesity, abdominal aortic aneurysm, COPD, chronic hip pain, presented to the Emergency Room for elevated blood pressure. She is also having severe right hip pain. Her blood pressure medications were adjusted. Due to her pain, her blood pressure has been running high at home. She is complaining of intermittent chest pain, which comes after her hip pain, which radiates towards her right groin area. Her activity is mostly limited at home as she uses a walker at home. Her chest pain pretty much comes at rest with no radiation, no associated symptoms. She also had some burning pain in the left upper back area, also occasional dizziness. She is somewhat vague in describing her chest pain symptoms. She also has some epigastric pain for the past couple of days, but no nausea, vomiting, diarrhea. Specifically, she denies any chest pain with ambulation at home. No PND, no orthopnea, no palpitations or dizziness. No headaches. No fever and chills. No cough or hemoptysis. REVIEW OF SYSTEMS: Review of 10 systems negative except as mentioned above. PAST MEDICAL HISTORY: Hypertension, abdominal aortic aneurysm 3.6 cm, PAD, chronic kidney disease, COPD, chronic hip pain, non-morbid obesity, diabetes type 2, dyslipidemia, insomnia, scoliosis, anxiety, asthma. PAST SURGICAL HISTORY: History of hysterectomy, bladder suspension and foot surgeries. SOCIAL HISTORY: The patient does not drink alcohol. Does not use illicit drugs. Remote tobacco use. FAMILY HISTORY: Father had a history of coronary artery disease, at the age of 58 and also had a history of diabetes. Mother had history of CAD, at the age of 72. MEDICATIONS AND ALLERGIES: Reviewed. PHYSICAL EXAMINATION: VITAL SIGNS: Blood pressure 158/92, pulse 88, respiratory rate 18, weight 98.4 kilos, BMI 37.3. GENERAL: Alert, comfortable, in no acute distress. HEAD AND NECK: Supple, no distended neck veins, no carotid bruit. CHEST: Symmetrical, nontender. LUNGS: Have scattered rhonchi. Good air entry bilaterally. HEART: Regular rhythm, no S3, no palpable thrills. ABDOMEN: Obese, nontender. Bowel sounds normal. EXTREMITIES: Showed trace to 1+ edema. Distal pulses palpable. SKIN: Warm and dry. No cyanosis, no clubbing. [place], [place] REPORT OF CONSULTATION NAME: TY SEXTON UNIT #: [id number] ROOM: [facility] DOCTOR: NAT SOLIS MD BIRTHDATE: [birth year] RECTAL: Deferred. GENITAL: Deferred. NEUROLOGIC: The patient is alert, oriented. No focal neurologic deficit. PSYCHIATRIC: The patient is alert with good mood and affect. IMAGING STUDIES, EKG AND LABS: Reviewed. EKG showed normal sinus rhythm. Her 2D echo from 12/2016 showed normal LV function with a trace of mitral and tricuspid regurgitation. The stress test from 12/2016 was unremarkable. IMPRESSION: 1. Chest pain, atypical, resting pain, sharp pains, myocardial infarction ruled out. 2. Hypertension, needs better control. Continue her home medications. Some other reason for her high blood pressures are her pain, which needs better control. If needed, add hydralazine 50 mg twice a day. 3. Infrarenal abdominal aortic aneurysm without rupture, 3.6 cm this admission and 3.5 cm in 2017. 4. Chronic kidney disease. 5. Chronic obstructive pulmonary disease. 6. Chronic right hip pain. 7. Tobacco smoking. The patient says she quit 2 days ago. 8. Non-morbid obesity. RECOMMENDATIONS: 1. Continue current medication. 2. Monitor blood pressure and add hydralazine 50 mg twice a day if the blood pressures are high. 3. Risk factor modification to quit smoking and weight loss discussed. However, her ambulation is significantly limited due to hip pain. 4. Lexiscan stress tomorrow to rule out ischemia due to her symptoms and CAD risk factors. 5. No family at bedside at the time of examination. NAT SOLIS MD CM:CONSTR:REPORT OF CONSULTATION 2337 01/18/19 0811 interface
--- NOTE | ~2018-12-08 | EKG ---
[place], [place] ELECTROCARDIOGRAM REPORT NAME: TY SEXTON UNIT #: [id number] ROOM: 407 DOCTOR: GRACIA DRAFT REPORT BIRTHDATE: [birth year] [facility] Test Date: 2018-12-08 Test Time: 16:39:07 Pat Name: TY SEXTON Department: Room: 407 Gender: F Vegetable Farmworker: Yumi Ferris : 1960 Requested By: BARRY LIPSCOMB DNP Order Number: [id number] Reading MD: Jim Hyde MD Measurements Intervals [place] Rate: 68 P: 57 [place]: 160 QRS: 79 QRSD: 78 T: 62 QT: 404 QTc: 430 Interpretive Statements Sinus rhythm Minimal ST elevation, inferior leads Compared to ECG 08/25/2018 12:22:54 ST (T wave) deviation now present Sinus tachycardia no longer present Electronically Signed On 12-10-2018 5:53:34 PST by Jim Hyde MD CM:EKGRPT:ELECTROCARDIOGRAM REPORT [id number] BARRY LIPSCOMB DNP EPIPHANY DRAFT REPORT BARRY LIPSCOMB DNP
--- NOTE | ~2018-12-08 | PR ---
[place], [place] PROGRESS NOTE NAME: TY SEXTON [facility] #: [id number] UNIT #: [id number] ROOM: 407 DOCTOR: WILL SCHULER,NAT BIRTHDATE: [birth year] DOS: 12/10/2018 REASON FOR VISIT: Atypical chest and hypertension. SUBJECTIVE: The patient is feeling better. Blood pressure is still running high, still having some hip pain, but no fever and chills. This note is an addendum to the note done by Dr. Alonzo. PHYSICAL EXAMINATION HEART: Regular rhythm, grade 1/6 systolic murmur. EXTREMITIES: Showed trace edema. IMPRESSION: 1. Atypical chest pain. 2. Poorly controlled hypertension. 3. Chronic hip pain. 4. Non-morbid obesity. 5. Infrarenal aortic aneurysm without rupture. 6. Chronic kidney disease. PLAN: 1. Add hydralazine 50 mg twice a day and monitor blood pressure. Her losartan was increased and continue metoprolol. 2. Increase hydralazine to 50 t.i.d. or 100 mg b.i.d. as needed for blood pressure. 3. Risk factor modification was discussed. 4. Cardiology will see as needed during the weekend. Again this note is an addendum to the note done by Dr. Alonzo. NAT SOLIS MD CM:PNTRANS [id number] NAT SOLIS MD 12/11/18 4366 interface
--- NOTE | ~2018-12-08 | EKG ---
[place], [place] ELECTROCARDIOGRAM REPORT NAME: TY SEXTON UNIT #: [id number] ROOM: 407 DOCTOR: GRACIA DRAFT REPORT BIRTHDATE: [birth year] [facility] Test Date: 2018-12-08 Test Time: 10:52:29 Pat Name: TY SEXTON Department: Room: 407 Gender: F Data Architect: FANY : 1960 Requested By: BARRY LIPSCOMB DNP Order Number: [id number] Reading MD: Jim Hyde MD Measurements Intervals [place] Rate: 85 P: 63 [place]: 146 QRS: 63 QRSD: 73 T: 52 QT: 356 QTc: 424 Interpretive Statements Sinus rhythm Compared to ECG 08/25/2018 12:22:54 Sinus tachycardia no longer present Electronically Signed On 12-10-2018 5:53:09 PST by Jim Hyde MD CM:EKGRPT:ELECTROCARDIOGRAM REPORT [id number] BARRY LIPSCOMB DNP EPIPHANY DRAFT REPORT BARRY LIPSCOMB DNP
--- NOTE | ~2018-12-08 | EKG ---
[place], [place] ELECTROCARDIOGRAM REPORT NAME: TY SEXTON UNIT #: [id number] ROOM: 407 DOCTOR: EPIPHANY DRAFT REPORT BIRTHDATE: [birth year] [facility] Test Date: 2018-12-08 Test Time: 14:31:52 Pat Name: TY SEXTON Department: Room: 407 Gender: F Health Inspector: Yumi Ferris : 1960 Requested By: BARRY LIPSCOMB DNP Order Number: [id number] Reading MD: Jim Hyde MD Measurements Intervals [place] Rate: 69 P: 58 CO: 161 QRS: 69 QRSD: 77 T: 52 QT: 406 QTc: 435 Interpretive Statements Sinus rhythm Minimal ST elevation, inferior leads Compared to ECG 08/25/2018 12:22:54 Electronically Signed On 12-10-2018 5:53:22 PST by Jim Hyde MD CM:EKGRPT:ELECTROCARDIOGRAM REPORT [id number] BARRY LIPSCOMB DNP EPIPHANY DRAFT REPORT BARRY LIPSCOMB DNP
[2018-12-08 11:49] LABS: BASO % 0.2 % (0.0-1.0); EOS # 0.2 10*3/uL (0.0-0.4); HEMATOCRIT 45.8 % (37.0-47.0); HEMOGLOBIN 15.7 g/dl (12.0-16.0); LYMPH # 2.9 10*3/uL (1.3-4.4); LYMPH % 29.6 % (27.0-41.0); MEAN CELL VOLUME 88.6 fl (81.0-99.0); MEAN CORPUSCULAR HGB 30.4 pg (27.0-31.0); MEAN CORPUSCULAR HGB CONC 34.3 g/dl (33.0-37.0); MEAN PLATELET VOLUME 11.4 fl (9.6-12.3); MONO # 0.8 10*3/uL (0.1-1.0); MONO % 8.3 % (3.0-9.0); NEUT # 5.9 10*3/uL (2.3-7.9); NEUT % 59.6 % (47.0-73.0); PLATELET COUNT AUTOMATED 241 10*3/uL (130-400); RED BLOOD COUNT 5.17 10*6/uL (4.10-5.10); RED CELL DISTRI WIDTH 12.7 % (0-14.5); WHITE BLOOD COUNT 9.8 10*3/uL (4.8-10.8)
[2018-12-08 12:00] LABS: INTERNATIONAL NORM RATIO 0.9 (2.0-3.5)
[2018-12-08 12:06] LABS: ALBUMIN 3.7 gm/dl (3.1-4.5); ALKALINE PHOSPHATASE 87 U/L (45-117); BUN 15 mg/dl (7-24); CHLORIDE 107 mmol/L (98-107); CREATININE 0.85 mg/dL (0.55-1.02); SGOT/AST 12 IU/L (3-35); SGPT/ALT 16 U/L (12-78); SODIUM 139 mmol/L (136-145); TOTAL PROTEIN 7.7 gm/dL (6.4-8.2)
[2018-12-08 12:19] LABS: TROPONIN I < 0.015 ng/ml (<0.045)
--- NOTE | 2018-12-08 13:00 | NUR ---
A 58, admitted to , under the services of KATALINA Davidson DO with a diagnosis of UNCONTROLLED HTN, INTRACTABLE PAIN. Chief complaint is HTN, PAIN. Patient arrived via stretcher from ER. Monitor applied. Initial assessment completed. Vital signs taken and recorded. KATALINA DAVIDSON DO notified of admission to the unit. Orders received. See assessment for past medical history, medications and allergies. Patient and/or family oriented to unit. [address] visitation policy reviewed. Clothing/patient valuable form completed. CARMELLA WAYNE
[2018-12-08] MEDS ORDERED: LEVEMIR100 UNIT/1 SQ (13:37)
[2018-12-08] MEDS ORDERED: NEURONTIN300 MG PO (13:41)
[2018-12-08] MEDS ORDERED: METOPROLOL SUC100 M1 PO (13:42)
[2018-12-08] MEDS ORDERED: PROCARDIA XL60 MG PO (13:47)
--- NOTE | 2018-12-08 15:24 | NUR ---
PT MEDICATED WITH NORCO FOR C/O RIGHT HIP/GROIN PAIN. CALL LIGHT IN REACH. WILL MONITOR
--- NOTE | 2018-12-08 19:37 | NUR ---
NOTIFIED DR. RAYMOND THAT PATIENTS BLOOD PRESSURE MANUALLY IS 178/110. NOTIFIED HER THAT SHE IS IN MASS AMOUNTS OF PAIN AND THAT SHE JUST RECIEVED A NORCO. UPDATED HER THAT SHE WAS SEEING DR. JOHNSON TODAY BUT SHE SENT HER TO THE ER FOR HIGH BLOOD PRESSURE. STATED THAT SHE DOES HAVE A PAIN CLINIC APPOINTMENT ON December FOR THE PAIN THAT HAS BEEN ONGOING SINCE FEBRUARY.
--- NOTE | 2018-12-08 19:42 | NUR ---
DR. RAYMOND CALLED BACK AND STATED TO GIVE THE PATIENTS NEUROTIN NOW, AND THAT IF IT ISN'T EFFECTIVE WITHIN AN HOUR TO CALL HER BACK AND THEY WILL GIVE HER STEROIDS
--- NOTE | 2018-12-08 20:54 | NUR ---
NOTIFIED DR. RAYMOND THAT PATIENTS PAIN IS STILL THERE. NOTIFIED HER ALSO OF PATIENT HAVING MRI DONE AT THE END OF OCTOBER AND TOLD HER THE RESULTS. DR. RAYMOND ORDERED 125MG OF SOLUMEDROL TO BE GIVEN NOW
--- NOTE | 2018-12-08 23:00 | NUR ---
PRN MEDICATIONS APPEAR EFFECTIVE, PT SLEEPING
[2018-12-09] VITALS: BP 153/78; BP 168/96
--- NOTE | 2018-12-09 00:23 | NUR ---
PRN NORCO GIVEN FOR PT COMPLAINTS OF RIGHT HIP PAIN RATING IT 8/10. CALL LIGHT WITHIN REACH, WILL MONITOR
--- NOTE | 2018-12-09 00:58 | NUR ---
CALLED DR. MCCORMICK NOTIFIED HER OF PATIENTS BLOOD PRESSURE BEING 168/96 MANUALLY. AND THAT PATIENT IS STILL IN PAIN. NOTIFIED HER THAT NORCO WAS JUST GIVEN. DR. MCCORMICK STATED SHE WOULD PUT SOMETHING IN
--- NOTE | 2018-12-09 04:12 | NUR ---
24 HR chart check completed.
--- NOTE | 2018-12-09 05:30 | NUR ---
PATIENT UP AMBULATING IN HALLWAY. PATIENT STATES SHE FEELS MUCH BETTER. AND ITS THE BEST SHE FELT SINCE FEBRUARY.
--- NOTE | 2018-12-09 05:44 | NUR ---
PRN NORCO GIVEN FOR PT COMPLAINTS OF 5/10 RIGHT HIP PAIN. CALL LIGHT IDALMIS EMERY, WILL MONITOR
[2018-12-09 07:09] LABS: HEMATOCRIT 47.7 % (37.0-47.0); HEMOGLOBIN 15.5 g/dl (12.0-16.0); LYMPH # 1.3 10*3/uL (1.3-4.4); MEAN CELL VOLUME 89.7 fl (81.0-99.0); MEAN CORPUSCULAR HGB 29.1 pg (27.0-31.0); MEAN CORPUSCULAR HGB CONC 32.5 g/dl (33.0-37.0); MEAN PLATELET VOLUME 11.6 fl (9.6-12.3); MONO # 0.1 10*3/uL (0.1-1.0); MONO % 0.9 % (3.0-9.0); NEUT # 7.2 10*3/uL (2.3-7.9); NEUT % 83.6 % (47.0-73.0); PLATELET COUNT AUTOMATED 248 10*3/uL (130-400); RED BLOOD COUNT 5.32 10*6/uL (4.10-5.10); RED CELL DISTRI WIDTH 12.4 % (0-14.5); WHITE BLOOD COUNT 8.7 10*3/uL (4.8-10.8)
[2018-12-09 07:24] LABS: CREATININE 1.26 mg/dL (0.55-1.02); PHOSPHOROUS 3.5 mg/dL (2.5-4.9); POTASSIUM 4.6 mmol/L (3.5-5.1)
[2018-12-09 07:34] LABS: FREE T4 0.88 ng/dl (0.76-1.46); THYROID STIM HORMONE (HS) 0.93 uIU/ml (0.358-4.75)
[2018-12-09 08:00] VITALS: BP 158/92
--- NOTE | 2018-12-09 09:00 | NUR ---
Ct Technician in to talk to patient. Patient states lives at home with alone. There are few steps in the home. Physician: [facility] Home health services: none Patient's level of ADLs: MINIMAL ASSIST Patient has working utilities: all working DME: wheelhair, cane, shower chair, hospital bed, bedside commode Follow-up physician's appointment after d/c: will be made by hospitalist nurse director upon discharge Does patient want to access PORTAL?: no Discharge plan discussed with patient, patient states she lives at home alone, she uses a cane for ambulation, but has other equipement at home, patient states she drove herself to the hospital. she stated she is soon going to need a hip replacement but has to wait until her blood pressure is regulated. she states she has a sister that helps her everyday. discussed with her VNA and she declines any services at this time. case management will follow. MAHIN DODSON
[2018-12-09 09:02] LABS: VITAMIN D, 25-HYDROXY 27.9 ng/mL (30-100)
--- NOTE | 2018-12-09 10:59 | NUR ---
CONSULT CALLED TO DR SOLIS'S OFFICE. NAN STATES SHE WILL NOTIFY HIM
[2018-12-09 12:00] VITALS: BP 159/83
[2018-12-09 16:00] VITALS: BP 174/89
[2018-12-09 20:00] VITALS: BP 155/86; BP 158/90
--- NOTE | 2018-12-09 20:36 | NUR ---
IV SITE TO RIGHT AC DISCONTINUED DUE TO DISCOMFORT. PATIENTS RIGHT WRIST/HAND HEP LOCK STILL INTACT
[2018-12-10] VITALS: BP 142/68
--- NOTE | 2018-12-10 00:18 | NUR ---
PRN RESTORIL AND NORCO GIVEN AT THIS TIME FOR PATIENT C/O INSOMNIA AND RIGHT HIP PAIN RATING A 5/10. CALL LIGHT IS WITHIN REACH. WILL MONITOR EFFECT.
--- NOTE | 2018-12-10 01:30 | NUR ---
PRN MEDICATION APPEARS EFFECTIVE, PT SLEEPING
[2018-12-10 06:40] LABS: BUN 25 mg/dl (7-24); CHLORIDE 105 mmol/L (98-107); POTASSIUM 4.3 mmol/L (3.5-5.1); SODIUM 139 mmol/L (136-145)
--- NOTE | 2018-12-10 06:48 | NUR ---
PATIENT SLEEPING, SNORING RESPIRATIONS.
[2018-12-10 08:00] VITALS: BP 186/96
--- NOTE | 2018-12-10 08:00 | NUR ---
PATIENT AWAKE AND ALERT SITTING SIDE OF BED. C/O RIGHT HIP/GROIN PAIN. STATES THAT SHE SLEPT GOOD. 6 AM MEDICATIONS GIVEN AT THIS TIME, DUE TO PATIENT WANTING TO SLEEP. CALL ENCARNACION WITHIN REACH. WILL MONITOR.
--- NOTE | 2018-12-10 08:15 | NUR ---
PATIENT REQUESTING PAIN MEDICATION FOR RIGHT HIP/ GROIN PAIN 9/10 ON 0/10 SCALE. NORCO ADMINISTERED PRESCRIBED. WILL MONITOR FOR EFFECTIVENESS.
--- NOTE | 2018-12-10 09:00 | NUR ---
case management visits with patient, patient states she will be going home when able. again discussed with her VNA and she declines any services at this time
--- NOTE | 2018-12-10 09:15 | NUR ---
PATIENT STATES THAT RIGHT HIP/GROIN PAIN IS 5/10 ON 0/10 SCALE AFTER ADMINISTRATION OF NORCO. WILL CONTINUE TO MONITOR.
--- NOTE | 2018-12-10 11:25 | NUR ---
Nutritional Support Services Note: Discussed with pt cardiac diet, diet copy given to pt. She is also a diabetic and we discussed proper portion sizes. Encouraged healthy meals. She lives alone. Encouraged follow up if needed. Vida Davies Rdn Ld
[2018-12-10 12:00] VITALS: BP 146/84
--- NOTE | 2018-12-10 12:16 | NUR ---
PATIENT REQUESTING PAIN MEDICATION FOR RIGHT HIP/GROIN PAIN 9/10 ON 0/10 SCALE. NORCO ADMINISTERED PRESCRIBED. WILL MONITOR FOR EFFECTIVENESS.
--- NOTE | 2018-12-10 12:31 | NUR ---
PATIENT REQUESTING MEDICATION FOR HEARTBURN. SABRINA ARMENTA CALLED. NEW ORDER RECEIVED FOR TUMS TID PRN.
--- NOTE | 2018-12-10 13:19 | NUR ---
PATIENT RESTING AT THIS TIME IN BED. STATES THAT RIGHT HIP/GROIN PAIN IS 5/10 ON 0/10 SCALE AFTER ADMINISTRATION OF NORCO. CONTINUE TO MONITOR.
--- NOTE | 2018-12-10 13:25 | NUR ---
TUMS ADMINISTERED FOR HEARTBURN.
--- NOTE | 2018-12-10 15:28 | NUR ---
Shift chart check completed.
[2018-12-10 16:00] VITALS: BP 142/68
[2018-12-10 20:00] VITALS: BP 177/91
--- NOTE | 2018-12-10 20:08 | NUR ---
PATIENT COMPLAINS OF HIP/GROIN PAIN RATED AT A 10. PRN NORCO WAS GIVEN. WILL MONITOR FOR EFFECTIVENESS.
[2018-12-10 21:00] VITALS: BP 168/98
--- NOTE | 2018-12-10 21:25 | NUR ---
PT STATES RELIEF FROM PREVIOUS PRN NORCO.
[2018-12-11] VITALS: BP 156/90
--- NOTE | 2018-12-11 09:28 | NUR ---
NORCO GIVEN FOR C/O RT HIP PAIN, RATES 7/10 ON PAIN SCALE. WILL MONITOR.
[2018-12-11] MEDS ORDERED: LEVEMIR100 UNIT/1 SQ (11:13)
[2018-12-11] MEDS ORDERED: HYDRALAZINE HYD50 MG PO (11:13)
--- NOTE | 2018-12-11 11:52 | NUR ---
[facility] Discharge instructions reviewed with patient/family. Patient receptive and verbalizes understanding. Follow-up care arranged. Written instructions given to patient/family. VIVEK FUENTES
== END 2018-12-11 11:52 | disposition home or self-care (01) | DRG 392 ==
LOC: ED 10:48 → 4E 12:22 → EDHOLD 12:22 → 4E 12:25
PROVIDERS: Internal Medicine; Nurse Practitioner Family; ADMIT Internal Medicine
DX: K21.9 Gastro-esophageal reflux disease without esophagitis (principal); I16.1 Hypertensive emergency; M25.551 Pain in right hip; J44.9 Chronic obstructive pulmonary disease, unspecified; M79.7 Fibromyalgia; M19.90 Unspecified osteoarthritis, unspecified site; M54.9 Dorsalgia, unspecified; F32.9 Major depressive disorder, single episode, unspecified; B19.20 Unspecified viral hepatitis C without hepatic coma; K76.0 Fatty (change of) liver, not elsewhere classified; F41.9 Anxiety disorder, unspecified; F17.210 Nicotine dependence, cigarettes, uncomplicated; I13.10 Hypertensive heart and chronic kidney disease without heart failure, with stage 1 through stage 4 chronic kidney disease, or unspecified chronic kidney disease; E11.22 Type 2 diabetes mellitus with diabetic chronic kidney disease; E11.40 Type 2 diabetes mellitus with diabetic neuropathy, unspecified; I71.4 Abdominal aortic aneurysm, without rupture; N18.3 Chronic kidney disease, stage 3 (moderate); R91.8 Other nonspecific abnormal finding of lung field; M41.9 Scoliosis, unspecified; E66.01 Morbid (severe) obesity due to excess calories; G89.29 Other chronic pain; E78.5 Hyperlipidemia, unspecified; Z88.8 Allergy status to other drugs, medicaments and biological substances; Z90.710 Acquired absence of both cervix and uterus; Z82.49 Family history of ischemic heart disease and other diseases of the circulatory system; Z83.3 Family history of diabetes mellitus; Z82.3 Family history of stroke; Z80.9 Family history of malignant neoplasm, unspecified; Z87.01 Personal history of pneumonia (recurrent); Z79.899 Other long term (current) drug therapy; Z68.37 Body mass index [BMI] 37.0-37.9, adult

== ENCOUNTER 2019-10-21 11:14 | Inpatient (IN) | payer OTHER ==
[~2019-10-21] VITALS: Ht 162.5 cm; Wt 100.3 kg
[2019-10-21 08:00] VITALS: BP 120/76
[~2019-10-21 11:14] MED LIST changes: +HYDRALAZINE HYD50 MG PO; +LEVEMIR100 UNIT/1 SQ; +METOPROLOL SUC100 M1 PO; +PROCARDIA XL60 MG PO
[2019-10-21 11:17] VITALS: BP 107/88
[2019-10-21 12:44] LABS: BASO % 0.4 % (0.0-1.0); EOS # 0.2 10*3/uL (0.0-0.4); EOS % 2.4 % (1.0-4.0); HEMATOCRIT 45.5 % (37.0-47.0); HEMOGLOBIN 15.3 g/dl (12.0-16.0); LYMPH # 2.9 10*3/uL (1.3-4.4); LYMPH % 40.6 % (27.0-41.0); MEAN CELL VOLUME 88.5 fl (81.0-99.0); MEAN CORPUSCULAR HGB 29.8 pg (27.0-31.0); MEAN CORPUSCULAR HGB CONC 33.6 g/dl (33.0-37.0); MEAN PLATELET VOLUME 11.7 fl (9.6-12.3); MONO # 0.7 10*3/uL (0.1-1.0); MONO % 9.7 % (3.0-9.0); NEUT # 3.3 10*3/uL (2.3-7.9); NEUT % 46.5 % (47.0-73.0); PLATELET COUNT AUTOMATED 244 10*3/uL (130-400); RED BLOOD COUNT 5.14 10*6/uL (4.10-5.10); RED CELL DISTRI WIDTH 12.8 % (0-14.5); WHITE BLOOD COUNT 7.1 10*3/uL (4.8-10.8)
[2019-10-21 13:08] LABS: ALBUMIN 3.7 gm/dl (3.1-4.5); ALKALINE PHOSPHATASE 82 U/L (45-117); BUN 15 mg/dl (7-24); CHLORIDE 107 mmol/L (98-107); CREATININE 1.27 mg/dL (0.55-1.02); SGOT/AST 31 IU/L (3-35); SGPT/ALT 27 U/L (12-78); SODIUM 137 mmol/L (136-145)
[2019-10-21 13:11] LABS: POTASSIUM 4.4 mmol/L (3.5-5.1); TROPONIN I < 0.015 ng/ml (<0.045)
[2019-10-21 14:02] VITALS: BP 111/80
[2019-10-21 16:00] VITALS: BP 99/64
--- NOTE | 2019-10-21 16:06 | NUR ---
REPORT CALLED TO VIVEK FITZPATRICK.
--- NOTE | 2019-10-21 16:10 | NUR ---
A 59, admitted to , under the services of RAJWINDER Morales DO with a diagnosis of COPD EXACERBATION. Chief complaint is FLU LIKE SYMPTOMS. Patient arrived via stretcher from ER. Monitor applied. Initial assessment completed. Vital signs taken and recorded. RAJWINDER MORALES DO notified of admission to the unit. Orders received. See assessment for past medical history, medications and allergies. Patient and/or family oriented to unit. [address] visitation policy reviewed. Clothing/patient valuable form completed. CARMELLA WAYNE
[2019-10-21 16:15] VITALS: BP 99/64
[2019-10-21] MEDS ORDERED: METOPROLOL SUCC50 M1 PO (16:34)
[2019-10-21] MEDS ORDERED: ZETIA10 MG PO (16:35)
[2019-10-21] MEDS ORDERED: LIPITOR80 MG PO (16:35)
[2019-10-21] MEDS ORDERED: LASIX40 MG PO (16:37)
[2019-10-21] MEDS ORDERED: LEVEMIR100 UNIT/1 SC (16:38)
--- NOTE | 2019-10-21 17:29 | NUR ---
NORCO GIVEN FOR C/O GENERALIZED DISCOMFORT. WILL MONITOR.
--- NOTE | 2019-10-21 17:56 | NUR ---
NOTOIFIED DR. GARCIA OF CONSULT.
--- NOTE | 2019-10-21 18:30 | NUR ---
JACOBY EFFECTIVE PER PT.
[2019-10-21 20:00] VITALS: BP 114/70
--- NOTE | 2019-10-21 23:43 | NUR ---
PATIENT MEDICATED PER PRN ORDER FOR C/O GENERALIZED DISCOMFORT. SEE EMAR. REINMFORCED USE OF CALL LIGHT.
[2019-10-22] VITALS: BP 127/63
--- NOTE | 2019-10-22 00:35 | NUR ---
PT. C/O BURNING WITH IV THAT WAS 20 GAUGE IN LEFT ANTECUBITAL THAT IV WAS DISCONTINUED. STERILE DRESSING APPLIED. CATHETER INTACT. IV started left antecubital with #22 angiocath after 2ND attempts. The IV site was prepped with Chloraprep. Heparin lock attached. IV solution 0.9NS infusing at 100 cc/hr. Sterile dressing applied. Patient tolerated precedure well. Procedure performed according to [facility] policy & procedure. FIDEL HERNDON J
--- NOTE | 2019-10-22 01:00 | NUR ---
NORCO GIVEN EARLIER WAS EFFECTIVE FOR C/O PAIN.
--- NOTE | 2019-10-22 03:56 | NUR ---
24 HR chart check completed.
--- NOTE | 2019-10-22 06:14 | NUR ---
DR. TAPIA NOTIFIED OF BLOOD SUGAR OF 388.
[2019-10-22 06:35] LABS: BASO % 0.1 % (0.0-1.0); HEMATOCRIT 43.1 % (37.0-47.0); HEMOGLOBIN 14.3 g/dl (12.0-16.0); LYMPH % 21.3 % (27.0-41.0); MEAN CELL VOLUME 88.9 fl (81.0-99.0); MEAN CORPUSCULAR HGB 29.5 pg (27.0-31.0); MEAN CORPUSCULAR HGB CONC 33.2 g/dl (33.0-37.0); MEAN PLATELET VOLUME 11.7 fl (9.6-12.3); MONO # 0.2 10*3/uL (0.1-1.0); MONO % 1.7 % (3.0-9.0); NEUT % 76.1 % (47.0-73.0); PLATELET COUNT AUTOMATED 239 10*3/uL (130-400); RED BLOOD COUNT 4.85 10*6/uL (4.10-5.10); RED CELL DISTRI WIDTH 12.5 % (0-14.5); WHITE BLOOD COUNT 9.2 10*3/uL (4.8-10.8)
[2019-10-22 06:52] LABS: ALBUMIN 3.5 gm/dl (3.1-4.5); CREATININE 1.25 mg/dL (0.55-1.02); PHOSPHOROUS 3.1 mg/dL (2.5-4.9); POTASSIUM 4.8 mmol/L (3.5-5.1); TOTAL PROTEIN 7.6 gm/dL (6.4-8.2)
[2019-10-22] MEDS ORDERED: FENOFIBRATE145 M1 PO (07:08)
[2019-10-22] MEDS ORDERED: ASPIR LOW81 MG PO (07:09)
[2019-10-22] MEDS ORDERED: IMDUR SA30 MG PO (07:10)
[2019-10-22] MEDS ORDERED: NORVASC10 MG PO (07:10)
[2019-10-22] MEDS ORDERED: FOLGARD TABLET1 EACH PO (07:13)
[2019-10-22] MEDS ORDERED: CYCLOBENZAPRINE10 MG PO (07:13)
[2019-10-22] MEDS ORDERED: LASIX40 MG PO (07:14)
--- NOTE | 2019-10-22 11:35 | NUR ---
NORCO GIVEN FOR C/O BACK PAIN. RATES 8/10 ON PAIN SCALE. WILL MONITOR.
[2019-10-22 12:00] VITALS: BP 119/72
--- NOTE | 2019-10-22 12:40 | NUR ---
JACOBY EFFECTIVE PER PT.
[2019-10-22 16:00] VITALS: BP 139/87
[2019-10-22 20:00] VITALS: BP 147/84
--- NOTE | 2019-10-22 22:00 | NUR ---
PATIENT MEDICATED WITH NORCO PER PRN ORDER FOR C/O BACK PAIN. RATED PATIENT A 7/10 WITH 10 BEING THE WORST. SEE EMAR REINFORCED USE OF CALL LIGHT.
[2019-10-23] VITALS: BP 117/70
--- NOTE | 2019-10-23 01:11 | NUR ---
24 HR chart check completed.
--- NOTE | 2019-10-23 02:00 | NUR ---
PATIENT RESTING QUIETLY. NO FURTHER C/O VOICED.
[2019-10-23 06:40] LABS: BUN 18 mg/dl (7-24); CHLORIDE 107 mmol/L (98-107); POTASSIUM 4.2 mmol/L (3.5-5.1); SODIUM 139 mmol/L (136-145)
--- NOTE | 2019-10-23 07:05 | NUR ---
ARRIVED ON SHIFT INTRODUCED TO PATIENT, NO NEEDS VOICED AT THIS TIME, WHITE BOARD UPDATED. REPORT RECEIVED FROM OFF GOING NURSE.
--- NOTE | 2019-10-23 11:57 | NUR ---
PATIENT C/O LOW BACK PAIN, RATES PAIN 7 [id number], NORISIS GIVEN ORDERED, WHITE BOARD UPDATED.
[2019-10-23 12:00] VITALS: BP 119/68
--- NOTE | 2019-10-23 12:56 | NUR ---
PATIENT REPORTS GOOD EFFECT FROM NORCO GIVEN X 1 HOUR AGO, RATES BACK PAIN 3/10
[2019-10-23 16:00] VITALS: BP 122/79
--- NOTE | 2019-10-23 17:44 | NUR ---
PATIENT C/O LOW BACK PAIN 06/04 MEDICATE WITH NORCO ORDERED PRN.
--- NOTE | 2019-10-23 18:43 | NUR ---
PATIENT REPORTS GOOD RELIEF FROM NORCO GIVEN X 1 HOUR AGO
[2019-10-23 20:00] VITALS: BP 130/70
--- NOTE | 2019-10-23 21:09 | NUR ---
DR MAS NOTIFIED OF BLOOD SUGAR READINGS OF 505 & 546. STATES TO GIVE INSULIN HUMALOG/LANTUS ORDERED AND RECHECK IN TWO HOURS. PT DENIES ANY SYMPTOMS, STATES SHE "FEELS FINE" AND THAT THIS IS "CAUSED FROM THE STEROIDS THEY HAVE HER ON". WILL CONTINUE TO MONITOR.
--- NOTE | 2019-10-23 21:50 | NUR ---
NORCO ADMINISTERED FOR PT C/O RT SIDED FLANK PAIN. WILL CONTINUE TO MONITOR AND REASSESS.
--- NOTE | 2019-10-23 22:34 | NUR ---
24 HOUR CHART CHECK COMPLETE.
--- NOTE | 2019-10-23 23:24 | NUR ---
PT STATES NORCO WAS EFFECTIVE.
[2019-10-24] VITALS: BP 141/79
--- NOTE | 2019-10-24 00:32 | NUR ---
SPOKE WITH DR MAS REGARDING BLOOD SUGAR OF 455. STATES TO GIVE ANOTHER 22 UNITS OF HUMALOG AT THIS TIME.
[2019-10-24 06:19] LABS: HEMATOCRIT 40.6 % (37.0-47.0); HEMOGLOBIN 13.6 g/dl (12.0-16.0); MEAN CELL VOLUME 87.9 fl (81.0-99.0); MEAN CORPUSCULAR HGB 29.4 pg (27.0-31.0); MEAN CORPUSCULAR HGB CONC 33.5 g/dl (33.0-37.0); MEAN PLATELET VOLUME 11.6 fl (9.6-12.3); PLATELET COUNT AUTOMATED 250 10*3/uL (130-400); RED BLOOD COUNT 4.62 10*6/uL (4.10-5.10); RED CELL DISTRI WIDTH 12.5 % (0-14.5); WHITE BLOOD COUNT 20.4 10*3/uL (4.8-10.8)
[2019-10-24 06:50] LABS: ALBUMIN 3.6 gm/dl (3.1-4.5); BUN 18 mg/dl (7-24); CHLORIDE 105 mmol/L (98-107); CREATININE 1.03 mg/dL (0.55-1.02); SGOT/AST 16 IU/L (3-35); SGPT/ALT 26 U/L (12-78); SODIUM 139 mmol/L (136-145)
[2019-10-24 06:52] LABS: ALKALINE PHOSPHATASE 76 U/L (45-117); POTASSIUM 4.1 mmol/L (3.5-5.1); TOTAL PROTEIN 7.2 gm/dL (6.4-8.2)
[2019-10-24 06:57] LABS: TOTAL CELLS COUNTED 100 #CELLS
[2019-10-24 06:58] LABS: BURR CELLS FEW; PLATELET SUFFICIENCY NORMAL (NORMAL)
--- NOTE | 2019-10-24 07:27 | NUR ---
TY SEXTON [id number] Please refer to the physician's history and physical for past medical history, comorbid conditions, and allergies. Diagnosis: COPD exacerbation Pancho Score: 22,LOW OR NO RISK WOUND DESCRIPTIONS: UNDER PATIENT'S BILATERAL BREASTS RED WITH MILD ODOR. NO OPEN AREAS OR DRAINAGE NOTED AT TIME OF ASSESSMENT. PATIENT STATES THIS STARTED APPROXIMATELY A WEEK AGO WHEN SHE FIRST BECAME SICK. PATIENT STATES THESE AREAS ARE IMPROVED. Surface the patient is resting on: Isoflex SKIN PREVENTION RECOMMENDATION: 1. Pressure redistribution support surface as appropriate 2. Elevate heels 3. Remove boots/TEDS every shift and reapply 4. Head of bed 30 degrees as tolerated 5. Assess nutrition and hydration 6. Manage moisture 7. Avoid the use of containment devices while in bed 8. Use absorptive products on surfaces limit layers of linens on bed 9. Turn and reposition every 1-2 hours in bed and every 1 hour in chair as tolerated 10. Weight shifts every 15 minutes while up in chair 11. Offloading with pillows or device to keep heels elevated off bed 12. Monitor skin at least every shift 13. Inspect under medical devices twice a day WOUND TREATMENT RECOMMENDATIONS: CONTINUE NYSTATIN POWDER EVERY 12 HOURS.
--- NOTE | 2019-10-24 10:48 | NUR ---
SPEECH PATHOLOGY Nursing screen completed. There are no reports of acute communication or swallowing difficulty therefore services are not recommended at this time. This dept. will be available should future needs arise. CLAUDINE CARLOS MS[facility]-[employer] DIRECTOR
[2019-10-24 12:00] VITALS: BP 133/71
--- NOTE | 2019-10-24 15:26 | NUR ---
Change Director in to talk to patient. Patient states lives at home with family. There are few steps in the home. Physician: [facility] Pharmacy: Home health services: none Patient's level of ADLs: INDEPENDENT Patient has working utilities: all working DME: shower chair, cane Follow-up physician's appointment after d/c: will be make by hospitlist nurse director upon discharge Does patient want to access PORTAL?: no Discharge plan discussed with patient, she lives at home, is independent in adls and ambulation, she states she will be returning home when medically stable and denies any home needs. MAHIN DODSON
[2019-10-24 16:00] VITALS: BP 129/74
--- NOTE | 2019-10-24 16:03 | NUR ---
SABRINA ARMENTA NP INFORMED OF BGM LEVEL.
--- NOTE | 2019-10-24 19:35 | NUR ---
PT STATES THAT SHE IS HAVING PAIN AROUND HER KIDNEY THAT IS RATED A 7/10 AND IS REQUESTING SOMETHING FOR PAIN. PO NORCO IS GIVEN AT THIS TIME. WILL CONTINUE TO MONITOR THE PATIENT. CALL LIGHT WITHIN REACH
[2019-10-24 20:00] VITALS: BP 143/88
--- NOTE | 2019-10-24 20:42 | NUR ---
AT 2011 PT REFUSED SATX
[2019-10-25] VITALS: BP 140/70
--- NOTE | 2019-10-25 01:59 | NUR ---
24 HR chart check completed.
--- NOTE | 2019-10-25 03:45 | NUR ---
PT STATES SHE IF HAVING BACK PAIN AND IS REQUESTING SOMETHING FOR IT. SHE RATES HER PAIN A 8/10. PO NORCO IS GIVEN AT THIS TIME. WILL CONTINUE TO MONITOR THE PATIENT, CALL LIGHT IN REACH
--- NOTE | 2019-10-25 03:53 | NUR ---
CALLED DR MCLEAN DUE TO PATIENT COMPLAINING OF BURNING IN HER THROAT. SHE WILL PUT IN ORDERS FOR THE PATIENT.
--- NOTE | 2019-10-25 04:11 | NUR ---
Recommend follow up for wound care in outpatient setting patient refused at this time.
--- NOTE | 2019-10-25 05:15 | NUR ---
PT DROPPED HER THREE 0600 MEDICATIONS ON THE FLOOR, SO HAD TO PULL THEM FOR A SECOND TIME TO GIVE TO HER
--- NOTE | 2019-10-25 07:27 | NUR ---
ARRIVED ON SHIFT, INTRODUCED TO PATIENT, NO NEEDS VOICED, REPORT RECEIVED FROM OFF GOING NURSE.
--- NOTE | 2019-10-25 07:28 | NUR ---
Shift chart check completed.
[2019-10-25 08:00] VITALS: BP 130/88
[2019-10-25 08:30] LABS: HEMATOCRIT 41.6 % (37.0-47.0); HEMOGLOBIN 14.3 g/dl (12.0-16.0); MEAN CELL VOLUME 88.1 fl (81.0-99.0); MEAN CORPUSCULAR HGB 30.3 pg (27.0-31.0); MEAN CORPUSCULAR HGB CONC 34.4 g/dl (33.0-37.0); MEAN PLATELET VOLUME 11.1 fl (9.6-12.3); PLATELET COUNT AUTOMATED 253 10*3/uL (130-400); RED BLOOD COUNT 4.72 10*6/uL (4.10-5.10); RED CELL DISTRI WIDTH 12.8 % (0-14.5); WHITE BLOOD COUNT 18.5 10*3/uL (4.8-10.8)
[2019-10-25 08:44] LABS: ALBUMIN 3.5 gm/dl (3.1-4.5); ALKALINE PHOSPHATASE 72 U/L (45-117); BUN 17 mg/dl (7-24); CHLORIDE 104 mmol/L (98-107); CREATININE 1.04 mg/dL (0.55-1.02); POTASSIUM 3.6 mmol/L (3.5-5.1); SGOT/AST 10 IU/L (3-35); SGPT/ALT 25 U/L (12-78); SODIUM 136 mmol/L (136-145)
[2019-10-25 08:55] LABS: ATYPICAL LYMPHS 3 % (0-0); TOTAL CELLS COUNTED 100 #CELLS
[2019-10-25 08:56] LABS: PLATELET SUFFICIENCY NORMAL (NORMAL)
--- NOTE | 2019-10-25 10:33 | NUR ---
Nutritional Support Services Note: Pt has excoriated area noted under right breast. Pt states area is improving. Pt is eating 100% of all meals. 1800cal diet as ordered. Pt receives a night snack. No nutrition intervention needed at this time. Ht.5'4 Wt.221#. IBW 110-130. Vida Davies Rdn Ld
--- NOTE | 2019-10-25 11:54 | NUR ---
case management visits with patientm she states she will return home when medically stable and denies any home needs
[2019-10-25 12:00] VITALS: BP 143/82
[2019-10-25] MEDS ORDERED: Nystatin Cream15 GM T (13:03)
[2019-10-25] MEDS ORDERED: PREDNISONE10 MG PO (13:07)
[2019-10-25] MEDS ORDERED: ZITHROMAX500 MG PO (13:07)
--- NOTE | 2019-10-25 13:30 | NUR ---
PULSE OX ON R/A AT REST 96%. HEART RATE 115. B/P 143/82. PT. AMBULATED IN THE MUNIZ ON R/A WITH CONVERSATION. PULSE OX ON R/A WAS 92%, HEAR RATE 131. PT. RETURNED TO ROOM RESTING AT BEDSIDE. SABRINA ARMENTA NOTIFIED OF RESULTS.
--- NOTE | 2019-10-25 13:45 | NUR ---
Discharge instructions reviewed with patient/family. Patient receptive and verbalizes understanding. Follow-up care arranged. Written instructions given to patient/family, REVIEWED MEDICATIONS, REMOVED IV, REMOVED TELEMETRY, PATIENT DECLIEND W/C FOR DISCHARGE. ADDISON HENDRICKSON
== END 2019-10-25 14:07 | disposition home or self-care (01) | DRG 140 ==
LOC: ED 11:14 → 4E 14:24 → EDHOLD 14:24 → 4E 15:49
PROVIDERS: Nurse Practitioner Family; Registered Nurse; Student in an Organized Health Care Education/Training Program; ADMIT Emergency Medicine
DX: J44.0 Chronic obstructive pulmonary disease with (acute) lower respiratory infection (principal); E44.0 Moderate protein-calorie malnutrition; E83.41 Hypermagnesemia; J45.41 Moderate persistent asthma with (acute) exacerbation; K76.0 Fatty (change of) liver, not elsewhere classified; N18.3 Chronic kidney disease, stage 3 (moderate); E11.22 Type 2 diabetes mellitus with diabetic chronic kidney disease; E11.40 Type 2 diabetes mellitus with diabetic neuropathy, unspecified; J44.1 Chronic obstructive pulmonary disease with (acute) exacerbation; J20.9 Acute bronchitis, unspecified; E78.5 Hyperlipidemia, unspecified; M79.7 Fibromyalgia; M19.90 Unspecified osteoarthritis, unspecified site; M54.9 Dorsalgia, unspecified; I71.4 Abdominal aortic aneurysm, without rupture; M41.9 Scoliosis, unspecified; F17.210 Nicotine dependence, cigarettes, uncomplicated; I25.10 Atherosclerotic heart disease of native coronary artery without angina pectoris; F41.9 Anxiety disorder, unspecified; G89.29 Other chronic pain; M25.559 Pain in unspecified hip; G47.00 Insomnia, unspecified; I12.9 Hypertensive chronic kidney disease with stage 1 through stage 4 chronic kidney disease, or unspecified chronic kidney disease; F32.9 Major depressive disorder, single episode, unspecified; E11.65 Type 2 diabetes mellitus with hyperglycemia; T38.0X5A Adverse effect of glucocorticoids and synthetic analogues, initial encounter; E66.9 Obesity, unspecified; D72.828 Other elevated white blood cell count; R21 Rash and other nonspecific skin eruption; Z88.8 Allergy status to other drugs, medicaments and biological substances; Z90.710 Acquired absence of both cervix and uterus; Z83.3 Family history of diabetes mellitus; Z82.49 Family history of ischemic heart disease and other diseases of the circulatory system; Z79.82 Long term (current) use of aspirin; Z79.899 Other long term (current) drug therapy; Z79.4 Long term (current) use of insulin; Z71.6 Tobacco abuse counseling; Y92.89 Other specified places as the place of occurrence of the external cause; Z68.37 Body mass index [BMI] 37.0-37.9, adult

== ENCOUNTER → 2020-03-08 | Outpatient (CLI) | payer OTHER ==
[~2020-03-08] MED LIST changes: +ASPIR LOW81 MG PO; +CYCLOBENZAPRINE10 MG PO; +FENOFIBRATE145 M1 PO; +FOLGARD TABLET1 EACH PO; +IMDUR SA30 MG PO; +LEVEMIR100 UNIT/1 SC; +LIPITOR80 MG PO; +METOPROLOL SUCC50 M1 PO; +NORVASC10 MG PO; +Nystatin Cream15 GM T; +ZITHROMAX500 MG PO
== END | disposition home or self-care (01) ==
LOC: CT 03-05 14:00
DX: R59.9 Enlarged lymph nodes, unspecified (principal); R91.1 Solitary pulmonary nodule

== ENCOUNTER → 2020-04-20 | Outpatient (CLI) | payer OTHER ==
[2020-04-20 09:25] LABS: BASO % 0.4 % (0.0-1.0); EOS # 0.2 10*3/uL (0.0-0.4); EOS % 2.2 % (1.0-4.0); LYMPH # 3.4 10*3/uL (1.3-4.4); LYMPH % 35.4 % (27.0-41.0); MEAN CELL VOLUME 88.4 fl (81.0-99.0); MEAN CORPUSCULAR HGB 28.9 pg (27.0-31.0); MEAN CORPUSCULAR HGB CONC 32.7 g/dl (33.0-37.0); MEAN PLATELET VOLUME 11.3 fl (9.6-12.3); MONO # 0.8 10*3/uL (0.1-1.0); MONO % 8.6 % (3.0-9.0); NEUT # 5.1 10*3/uL (2.3-7.9); NEUT % 53.1 % (47.0-73.0); PLATELET COUNT AUTOMATED 300 10*3/uL (130-400); RED BLOOD COUNT 5.43 10*6/uL (4.10-5.10); RED CELL DISTRI WIDTH 12.7 % (0-14.5); WHITE BLOOD COUNT 9.6 10*3/uL (4.8-10.8)
== END | disposition home or self-care (01) ==
LOC: LAB 08:34
PROVIDERS: Internal Medicine Critical Care Medicine
DX: Z79.899 Other long term (current) drug therapy (principal)

== ENCOUNTER 2022-07-24 13:04 | Emergency (ER) | payer OTHER ==
[~2022-07-24] VITALS: Ht 162.5 cm; Wt 82.1 kg
[2022-07-24 13:50] LABS: BASO % 0.3 % (0.0-1.0); EOS # 0.3 10*3/uL (0.0-0.4); EOS % 2.8 % (1.0-4.0); HEMATOCRIT 45.5 % (37.0-47.0); LYMPH # 3.6 10*3/uL (1.3-4.4); LYMPH % 35.8 % (27.0-41.0); MEAN CELL VOLUME 91.7 fl (81.0-99.0); MEAN CORPUSCULAR HGB CONC 33.8 g/dl (33.0-37.0); MONO # 0.8 10*3/uL (0.1-1.0); MONO % 7.9 % (3.0-9.0); NEUT # 5.4 10*3/uL (2.3-7.9); PLATELET COUNT AUTOMATED 245 10*3/uL (130-400); RED BLOOD COUNT 4.96 10*6/uL (4.10-5.10); RED CELL DISTRI WIDTH 12.6 % (0-14.5); WHITE BLOOD COUNT 10.2 10*3/uL (4.8-10.8)
[2022-07-24 14:13] LABS: ALKALINE PHOSPHATASE 85 U/L (45-117); BUN 12 mg/dl (7-24); CHLORIDE 108 mmol/L (98-107); CREATININE 0.98 mg/dL (0.55-1.02); POTASSIUM 4.1 mmol/L (3.5-5.1); SGOT/AST 15 IU/L (3-35); SGPT/ALT 20 U/L (12-78); SODIUM 138 mmol/L (136-145); TOTAL PROTEIN 7.5 gm/dL (6.4-8.2)
[2022-07-24] MEDS ORDERED: PREDNISONE20 M1 PO ×3 (15:08→15:41)
[2022-07-24] MEDS ORDERED: ZITHROMAX250 MG PO ×3 (15:10→15:41)
== END 2022-07-24 15:45 | disposition home or self-care (01) ==
LOC: ED 13:04
PROVIDERS: Family Medicine
DX: J44.1 Chronic obstructive pulmonary disease with (acute) exacerbation (principal); F17.200 Nicotine dependence, unspecified, uncomplicated; Z88.8 Allergy status to other drugs, medicaments and biological substances; Z79.899 Other long term (current) drug therapy; Z79.82 Long term (current) use of aspirin; Z90.710 Acquired absence of both cervix and uterus; Z98.890 Other specified postprocedural states

== ENCOUNTER 2023-08-03 00:12 | Emergency (ER) | payer OTHER ==
[~2023-08-03] VITALS: Ht 167.6 cm; Wt 72.6 kg
[~2023-08-03 00:12] MED LIST changes: +KAPSPARGO SPRIN50 MG PO; +LEXAPRO10 MG PO; +MELATONIN5 M1 SL; +PREDNISONE20 M1 PO; +ROSUVASTATIN CA20 MG PO; +TRULICITY3 MG/0.5 M SQ; +VENT7GM INH; +VENTOLIN 02.5 MG/3 M INH; +VITAMIN D31250 MCG PO
[2023-08-03] MEDS ORDERED: PREDNISONE50 MG PO (00:22)
[2023-08-03] MEDS ORDERED: KENALOG 0.025%15 GM T (00:24)
== END 2023-08-03 01:15 | disposition home or self-care (01) ==
LOC: ED 00:12
DX: T78.40XA Allergy, unspecified, initial encounter (principal); I10 Essential (primary) hypertension; J44.9 Chronic obstructive pulmonary disease, unspecified; M19.90 Unspecified osteoarthritis, unspecified site; E11.9 Type 2 diabetes mellitus without complications; Z79.4 Long term (current) use of insulin; K21.9 Gastro-esophageal reflux disease without esophagitis; E78.00 Pure hypercholesterolemia, unspecified; F41.9 Anxiety disorder, unspecified; F32.A Depression, unspecified; Z88.8 Allergy status to other drugs, medicaments and biological substances; Z90.710 Acquired absence of both cervix and uterus; Z98.890 Other specified postprocedural states; F17.290 Nicotine dependence, other tobacco product, uncomplicated; X58.XXXA Exposure to other specified factors, initial encounter

== ENCOUNTER 2023-08-11 23:28 | Emergency (ER) | payer OTHER ==
[~2023-08-11] VITALS: Ht 162.5 cm; Wt 83.9 kg
[~2023-08-11 23:28] MED LIST changes: +KENALOG 0.025%15 GM T
[2023-08-12 00:31] LABS: BILIRUBIN Negative (Negative); BLOOD 3+ (Negative); CLARITY Cloudy (Clear); COLOR Yellow (Yellow); GLUCOSE Negative (Negative); KETONE Negative (Negative); LEUKO ESTERASE 3+ (Negative); NITRITE Negative (Negative); UROBILINOGEN 0.2 E.U./dl (0.0-1.0)
[2023-08-12 00:40] LABS: BACTERIA 2+; RBC 21-30 rbc/hpf (0-2); WBC TNTC wbc/hpf (0-5)
[2023-08-12] MEDS ORDERED: CIPRO500 MG PO (01:02)
== END 2023-08-12 02:04 | disposition home or self-care (01) ==
LOC: ED 23:28
PROVIDERS: Internal Medicine
DX: N39.0 Urinary tract infection, site not specified (principal); I10 Essential (primary) hypertension; J44.9 Chronic obstructive pulmonary disease, unspecified; M19.90 Unspecified osteoarthritis, unspecified site; E11.9 Type 2 diabetes mellitus without complications; Z79.4 Long term (current) use of insulin; F32.A Depression, unspecified; F41.9 Anxiety disorder, unspecified; Z88.8 Allergy status to other drugs, medicaments and biological substances; Z90.710 Acquired absence of both cervix and uterus; Z98.890 Other specified postprocedural states; F17.200 Nicotine dependence, unspecified, uncomplicated; F12.10 Cannabis abuse, uncomplicated

== ENCOUNTER 2023-10-29 05:21 | Emergency (ER) | payer OTHER ==
[~2023-10-29] VITALS: Ht 162.5 cm; Wt 84.4 kg
[2023-10-29 06:15] LABS: BASO % 0.2 % (0.0-1.0); EOS # 0.1 10*3/uL (0.0-0.4); EOS % 1.4 % (1.0-4.0); HEMATOCRIT 45.3 % (37.0-47.0); LYMPH # 2.6 10*3/uL (1.3-4.4); LYMPH % 26.9 % (27.0-41.0); MEAN CORPUSCULAR HGB 30.1 pg (27.0-31.0); MEAN CORPUSCULAR HGB CONC 33.1 g/dl (33.0-37.0); MEAN PLATELET VOLUME 10.6 fl (9.6-12.3); MONO # 1.2 10*3/uL (0.1-1.0); MONO % 12.1 % (3.0-9.0); NEUT # 5.8 10*3/uL (2.3-7.9); PLATELET COUNT AUTOMATED 222 10*3/uL (130-400); RED BLOOD COUNT 4.98 10*6/uL (4.10-5.10); RED CELL DISTRI WIDTH 12.5 % (0-14.5); WHITE BLOOD COUNT 9.8 10*3/uL (4.8-10.8)
[2023-10-29 06:35] LABS: POTASSIUM 4.2 mmol/L (3.4-5.1); TOTAL PROTEIN 7.5 gm/dL (6.0-8.0)
[2023-10-29] MEDS ORDERED: BENZONATATE100 M1 PO (08:20)
[2023-10-29] MEDS ORDERED: VIBRAMYCIN100 MG PO (08:20)
[2023-10-29] MEDS ORDERED: PREDNISONE20 M1 PO (08:20)
== END 2023-10-29 09:08 | disposition home or self-care (01) ==
LOC: ED 05:21
PROVIDERS: Emergency Medicine
DX: J44.1 Chronic obstructive pulmonary disease with (acute) exacerbation (principal); J06.9 Acute upper respiratory infection, unspecified; Z88.8 Allergy status to other drugs, medicaments and biological substances; E83.41 Hypermagnesemia; F41.9 Anxiety disorder, unspecified; F32.A Depression, unspecified; E11.22 Type 2 diabetes mellitus with diabetic chronic kidney disease; I13.0 Hypertensive heart and chronic kidney disease with heart failure and stage 1 through stage 4 chronic kidney disease, or unspecified chronic kidney disease; N18.30 Chronic kidney disease, stage 3 unspecified; M79.7 Fibromyalgia; E78.5 Hyperlipidemia, unspecified; M19.90 Unspecified osteoarthritis, unspecified site; I50.9 Heart failure, unspecified; E11.40 Type 2 diabetes mellitus with diabetic neuropathy, unspecified; Z90.710 Acquired absence of both cervix and uterus; Z98.890 Other specified postprocedural states; F17.200 Nicotine dependence, unspecified, uncomplicated; Z20.822 Contact with and (suspected) exposure to COVID-19

== ENCOUNTER → 2024-09-12 | Day surgery (SDC) | payer OTHER ==
[~2024-09-12] VITALS: Ht 162.5 cm; Wt 83.9 kg
[~2024-09-12] MED LIST changes: +ASPIRIN ADULT L81 M1 PO; +Albuterol Sulf/Ipratropium 3 ML VIAL NEB ONE; +Albuterol Sulfate 2.5 MG/0.5 ML VIAL NEB ONE; +BENZONATATE100 M1 PO; +Lactated Ringer's Solution 500 ML IV ONE; +Lactated Ringer's Solution 500 ML IV SCH; +Lidocaine Hydrochloride 4% 5 ML AMP NEB ONE; +Lidocaine Hydrochloride 4% 5 ML AMP ONE; +PROPOFOL 200 MG/20 ML VIAL IV ONE; +VIBRAMYCIN100 MG PO
[2024-09-12 08:55] VITALS: BP 111/74
[2024-09-12 10:07] VITALS: BP 129/107
[2024-09-12 10:22] VITALS: BP 120/76
[2024-09-12 10:37] VITALS: BP 117/67
[2024-09-13 13:04] LABS: ACID FAST SPEC PROCESSING Concentration (.)
== END | disposition home or self-care (01) ==
LOC: SDC 09-08 12:30
PROVIDERS: ATTEND Internal Medicine Critical Care Medicine
DX: R05.3 Chronic cough (principal); J98.09 Other diseases of bronchus, not elsewhere classified; J20.9 Acute bronchitis, unspecified; J44.1 Chronic obstructive pulmonary disease with (acute) exacerbation; I13.0 Hypertensive heart and chronic kidney disease with heart failure and stage 1 through stage 4 chronic kidney disease, or unspecified chronic kidney disease; E11.22 Type 2 diabetes mellitus with diabetic chronic kidney disease; N18.30 Chronic kidney disease, stage 3 unspecified; I50.9 Heart failure, unspecified; E11.40 Type 2 diabetes mellitus with diabetic neuropathy, unspecified; E78.00 Pure hypercholesterolemia, unspecified; I25.110 Atherosclerotic heart disease of native coronary artery with unstable angina pectoris; F41.9 Anxiety disorder, unspecified; F32.A Depression, unspecified; Z86.19 Personal history of other infectious and parasitic diseases; Z90.49 Acquired absence of other specified parts of digestive tract; Z96.641 Presence of right artificial hip joint; Z87.891 Personal history of nicotine dependence; Z90.710 Acquired absence of both cervix and uterus; Z87.440 Personal history of urinary (tract) infections; Z98.890 Other specified postprocedural states; Z79.82 Long term (current) use of aspirin; Z79.899 Other long term (current) drug therapy; Z83.3 Family history of diabetes mellitus; Z82.49 Family history of ischemic heart disease and other diseases of the circulatory system